=== PATIENT | male | born 1940 | race Caucasian/White ===

== ENCOUNTER 2017-04-06 13:14 | Outpatient (CLI) | payer MEDICARE, OTHER ==
[2017-04-06 19:49] LABS: ALBUMIN/GLOBULIN RATIO 1.2 (1.0-2.2); BILIRUBIN,TOTAL 0.4 mg/dL (0.2-1.0); CALCIUM 8.8 mg/dL (8.5-10.3); POTASSIUM 4.2 mmol/L (3.5-5.0); TOTAL PROTEIN 6.5 g/dL (6.7-8.2)
[2017-04-06 19:54] LABS: BASOPHILS # (AUTO) 0.1 10^3/uL (0.0-0.1); BASOPHILS % (AUTO) 1.2 %; EOSINOPHILS # (AUTO) 0.5 10^3/uL (0.0-0.7); EOSINOPHILS % (AUTO) 7.7 %; HCT - HEMATOCRIT 41.9 % (42.0-52.0); HGB - HEMOGLOBIN 13.5 g/dL (14.0-18.0); LYMPHOCYTES # (AUTO) 1.3 10^3/uL (1.5-3.5); LYMPHOCYTES % (AUTO) 21.7 %; MEAN CORPUSCULAR HEMOGLOBIN 27.9 pg (27.0-31.0); MEAN CORPUSCULAR HGB CONC 32.3 g/dL (32.0-36.0); MEAN CORPUSCULAR VOLUME 86.4 fL (80.0-94.0); MEAN PLATELET VOLUME 8.3 fL (7.4-11.4); MONOCYTES # (AUTO) 0.5 10^3/uL (0.0-1.0); NEUTROPHILS # (AUTO) 3.6 10^3/uL (1.5-6.6); NEUTROPHILS % (AUTO) 61.4 %; NUCLEATED RED BLOOD CELLS AUTO 0.2 /100WBC; RED BLOOD COUNT 4.86 10^6/uL (4.70-6.10); RED CELL DISTRIBUTION WIDTH 14.3 % (12.0-15.0); UNCORRECTED WHITE BLOOD COUNT 5.9 x10^3/uL; WHITE BLOOD COUNT 5.9 x10^3/uL (4.8-10.8)
[2017-04-06 21:11] LABS: HEMOGLOBIN A1C 0.98 g/dL
== END 2017-04-06 13:15 | disposition home or self-care (01) ==
LOC: LAB.WCP 13:14
PROVIDERS: ATTEND Family Medicine
DX: E11.9 Type 2 diabetes mellitus without complications (principal); I63.9 Cerebral infarction, unspecified; I48.0 Paroxysmal atrial fibrillation
CPT/HCPCS: 36415; 80053; 82043; 83036; 85025

== ENCOUNTER 2017-07-08 10:46 | Outpatient (CLI) | payer MEDICARE, OTHER ==
[2017-07-08 19:32] LABS: ALBUMIN/GLOBULIN RATIO 1.3 (1.0-2.2); BILIRUBIN,TOTAL 0.6 mg/dL (0.2-1.0); CALCIUM 8.7 mg/dL (8.5-10.3); CREATININE 0.8 mg/dL (0.6-1.2); POTASSIUM 4.5 mmol/L (3.5-5.0); TOTAL PROTEIN 6.7 g/dL (6.7-8.2)
[2017-07-08 19:35] LABS: HEMOGLOBIN A1C 0.91 g/dL
== END 2017-07-08 10:47 | disposition home or self-care (01) ==
LOC: LAB.WCP 10:46
PROVIDERS: ATTEND Family Medicine
DX: H53.461 Homonymous bilateral field defects, right side (principal); E11.9 Type 2 diabetes mellitus without complications; I48.0 Paroxysmal atrial fibrillation
CPT/HCPCS: 36415; 80053; 83036

== ENCOUNTER 2017-07-29 12:52 | Outpatient (CLI) | payer MEDICARE, OTHER ==
[2017-07-29] MEDS ORDERED: GADOBUTROL 7.5 MMOL/7.5 ML VIAL IVP ONE (14:26)
--- NOTE | 2017-07-29 15:05 | MRI Report ---
EXAM: MRI BRAIN WITHOUT AND WITH CONTRAST EXAM DATE: 07/29/2017 02:38 PM. 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 COMPARISON: MRI on 08/05/2016. TECHNIQUE: Multiplanar, multisequence T1-weighted and fluid-sensitive MR sequences of the brain were performed. Sequences optimized for routine evaluation. Other: None. Without and with IV Contrast: 7.5 cc Gadavist. FINDINGS: Parenchyma: No evidence of acute infarct on diffusion weighted sequence. Wedge-shaped region of encep halomalacia is present in the left cerebellar vermis that measures approximately 2.4 x 1.7 cm, new co mpared to the 08/05/2016 exam and consistent with remote infarct in the left SCA territory. Geographic regions of encephalomalacia are present in the inferior right occipital lobe and medial le ft occipital lobe, unchanged from the 08/05/2016 exam and consistent with remote infarcts in the VP SITE territories bilaterally. Small defects are present in the inferior right cerebellar hemisphere, also unchanged from the prior exam and consistent with remote lacunar infarcts in the PICA territory. No e vidence of prior hemorrhage on susceptibility weighted sequence. No abnormal enhancement. Pituitary: Unremarkable. Ventricles and Extra-axial Spaces: Ventricles are nearly symmetric and unchanged in size compared to the 2016 exam. Extra-axial spaces are unremarkable. No abnormal enhancement. Orbits: Unremarkable. Sinuses: The paranasal sinuses are clear. Small bilateral mastoid effusions are present. Major Vascular Flow Voids: Intact. Dural Venous Sinuses and Major Central Veins: Patent on post-contrast images. IMPRESSION: 1. No acute intracranial abnormality. Specifically, no evidence of acute infarct, hemorrhage, or mass lesion. 2. Wedge-shaped region of encephalomalacia is present in the left cerebellar vermis, new compared to the 08/05/2016 exam and consistent with remote infarct in the left SCA territory. 3. Geographic regions of encephalomalacia in the inferior right occipital lobe and medial left occipi michelle lobe are unchanged from the 2016 exam and consistent with remote infarcts in the VP SITE territories. Small remote lacunar infarcts are also present in the inferior right cerebellar hemisphere, correspo nding to the right PICA territory. [facility] Referring Provider Line: [phone] SITE ID: [id number]
== END 2017-07-29 12:53 | disposition home or self-care (01) ==
LOC: DI 12:52
PROVIDERS: ATTEND Family Medicine
DX: H53.461 Homonymous bilateral field defects, right side (principal); I63.9 Cerebral infarction, unspecified; R51 Headache; I48.0 Paroxysmal atrial fibrillation
CPT/HCPCS: 70553

== ENCOUNTER 2017-11-24 08:00 | Outpatient (CLI) | payer MEDICARE, OTHER ==
[2017-11-24 19:00] LABS: BASOPHILS # (AUTO) 0.1 10^3/uL (0.0-0.1); BASOPHILS % (AUTO) 1.2 %; EOSINOPHILS # (AUTO) 0.3 10^3/uL (0.0-0.7); EOSINOPHILS % (AUTO) 5.4 %; HGB - HEMOGLOBIN 15.3 g/dL (14.0-18.0); LYMPHOCYTES # (AUTO) 1.3 10^3/uL (1.5-3.5); LYMPHOCYTES % (AUTO) 24.7 %; MEAN CORPUSCULAR HEMOGLOBIN 27.9 pg (27.0-31.0); MEAN CORPUSCULAR HGB CONC 32.2 g/dL (32.0-36.0); MEAN CORPUSCULAR VOLUME 86.6 fL (80.0-94.0); MEAN PLATELET VOLUME 7.9 fL (7.4-11.4); MONOCYTES # (AUTO) 0.4 10^3/uL (0.0-1.0); MONOCYTES % (AUTO) 8.4 %; NEUTROPHILS # (AUTO) 3.1 10^3/uL (1.5-6.6); NEUTROPHILS % (AUTO) 60.3 %; PLT - PLATELET COUNT 255 10^3/uL (130-450); RED BLOOD COUNT 5.47 10^6/uL (4.70-6.10); RED CELL DISTRIBUTION WIDTH 14.3 % (12.0-15.0); WHITE BLOOD COUNT 5.2 x10^3/uL (4.8-10.8)
[2017-11-24 19:27] LABS: ALBUMIN 3.7 g/dL (3.2-5.5); ALBUMIN/GLOBULIN RATIO 1.2 (1.0-2.2); ALKALINE PHOSPHATASE 55 IU/L (42-121); ALT ALANINE AMINOTRANSFERASE 46 IU/L (10-60); AST ASPARTATE AMINOTRANSFERASE 34 IU/L (10-42); BILIRUBIN,TOTAL 0.5 mg/dL (0.2-1.0); BUN - BLOOD UREA NITROGEN 15 mg/dL (6-20); CALCIUM 8.7 mg/dL (8.5-10.3); CARBON DIOXIDE - CO2 27 mmol/L (21-32); CHLORIDE 104 mmol/L (101-111); CHOL/HDL RATIO 5.6 (<5.0); CHOLESTEROL 152 mg/dL; GFR - MDRD 72 (>89); GLUCOSE 131 mg/dL (70-100); HDL CHOLESTEROL 27 mg/dL; LDL CHOLESTEROL,CALCULATED 89 mg/dL; LDL/HDL RATIO 3.3 (<3.6); SODIUM 137 mmol/L (135-145); TOTAL PROTEIN 6.9 g/dL (6.7-8.2); VLDL CHOLESTEROL 36 mg/dL
== END 2017-11-24 08:01 | disposition home or self-care (01) ==
LOC: LAB.WCP 08:00
PROVIDERS: ATTEND Family Medicine
DX: I63.8 Other cerebral infarction (principal); I48.0 Paroxysmal atrial fibrillation
CPT/HCPCS: 36415; 80053; 80061; 84443; 85025

== ENCOUNTER → 2018-07-27 | Outpatient (CLI) | payer MEDICARE, OTHER | LOC: LAB.R 08:00 | PROVIDERS: ATTEND Family Medicine | DX: M54.5 Low back pain (principal); R31.9 Hematuria, unspecified | CPT/HCPCS: 87086 ==

== ENCOUNTER 2018-07-29 16:00 | Outpatient (CLI) | payer MEDICARE, OTHER ==
[2018-07-29 19:28] LABS: BILIRUBIN,URINE NEGATIVE (NEGATIVE); GLUCOSE, URINE (UA) NEGATIVE (NEGATIVE); KETONES,URINE (UA) NEGATIVE (NEGATIVE); LEUKOCYTE ESTERASE, URINE NEGATIVE (NEGATIVE); NITRITE,URINE NEGATIVE (NEGATIVE); OCCULT BLOOD,URINE LARGE (NEGATIVE); PROTEIN,URINE 100 mg/dL (NEGATIVE); UROBILINOGEN,URINE 0.2 (NORMAL) E.U./dL (NORMAL)
[2018-07-29 19:48] LABS: BACTERIA,URINE None Seen /HPF (None Seen); CLARITY,URINE CLOUDY (CLEAR); RBC,URINE TNTC /HPF (0-5); SQUAMOUS EPITHELIAL CELL,UR NONE SEEN (<= Few)
== END 2018-07-29 16:01 | disposition home or self-care (01) ==
LOC: LAB.R 16:00
PROVIDERS: ATTEND Family Medicine
DX: R31.9 Hematuria, unspecified (principal)
CPT/HCPCS: 81001; 87086

== ENCOUNTER 2018-08-06 08:00 | Outpatient (CLI) | payer MEDICARE, OTHER ==
[2018-08-06 18:49] LABS: URIC ACID 5.6 mg/dL (2.6-7.2)
== END 2018-08-06 08:01 | disposition home or self-care (01) ==
LOC: LAB.WCP 08:00
PROVIDERS: ATTEND Family Medicine
DX: R31.9 Hematuria, unspecified (principal)
CPT/HCPCS: 36415; 80048; 82365; 84550

== ENCOUNTER 2018-08-12 17:48 | Outpatient (CLI) | payer MEDICARE, OTHER ==
--- NOTE | 2018-08-13 09:43 | Ultrasound Report ---
Reason: HEMATURIA,UNSPECIFIED TYPE Procedure Date: 08/12/2018 Accession Number: [id number] / [id number] Procedure: US - Retroperitoneal CPT Code: FULL RESULT: EXAM: RENAL ULTRASOUND EXAM DATE: 08/12/2018 07:15 PM. CLINICAL HISTORY: Hematuria, unspecified type. COMPARISON: None. TECHNIQUE: Real-time scanning was performed with static images obtained. FINDINGS: Right Kidney: 11.0 x 4.2 x 5.1 cm. 0.7 cm mid right renal simple cyst. No mass, stones or hydronephrosis. Small hypoechoic region adjacent to the inferior pole of the right kidney. Left Kidney: 10.9 x 6.1 x 4.7 cm. Cystic structures are noted in the left renal sinus. The largest measures 2.5 x 1.6 cm. No mass, stones or hydronephrosis. Several small hypoechoic lesion adjacent to the inferior pole of the left kidney. Bladder: Bilateral jets seen. The prevoid bladder volume was 121.8 cc. The postvoid bladder volume was 29.1 cc. Bladder is trabeculated. Other: Prostate gland appears prominent. IMPRESSION: 1. A 0.7 cm simple mid right renal cyst. Probable left parapelvic cyst. 2. No mass, stone or hydronephrosis. 3. No focal bladder abnormality. [facility]
== END 2018-08-12 17:49 | disposition home or self-care (01) ==
LOC: DI 17:48
PROVIDERS: ATTEND Urology
DX: R31.9 Hematuria, unspecified (principal); N28.1 Cyst of kidney, acquired
CPT/HCPCS: 76770

== ENCOUNTER 2019-01-19 08:00 | Outpatient (CLI) | payer MEDICARE, OTHER | END 2019-01-19 23:59 | disposition home or self-care (01) | LOC: LAB.WCP 08:00 | PROVIDERS: ATTEND Family Medicine | DX: I48.0 Paroxysmal atrial fibrillation (principal); Z79.01 Long term (current) use of anticoagulants ==

== ENCOUNTER 2019-02-16 08:00 | Outpatient (CLI) | payer MEDICARE, OTHER | END 2019-02-16 23:59 | disposition home or self-care (01) | LOC: LAB.WCP 08:00 | PROVIDERS: ATTEND Family Medicine | DX: I63.9 Cerebral infarction, unspecified (principal); Z79.01 Long term (current) use of anticoagulants | CPT/HCPCS: 81025 ==

== ENCOUNTER 2019-02-17 08:00 | Outpatient (CLI) | payer MEDICARE, OTHER ==
[2019-02-17 13:11] LABS: BASOPHILS # (AUTO) 0.1 10^3/uL (0.0-0.1); BASOPHILS % (AUTO) 1.1 %; EOSINOPHILS # (AUTO) 0.3 10^3/uL (0.0-0.7); EOSINOPHILS % (AUTO) 4.1 %; HGB - HEMOGLOBIN 14.6 g/dL (14.0-18.0); LYMPHOCYTES # (AUTO) 1.1 10^3/uL (1.5-3.5); LYMPHOCYTES % (AUTO) 17.7 %; MEAN CORPUSCULAR HEMOGLOBIN 28.2 pg (27.0-31.0); MEAN CORPUSCULAR HGB CONC 33.3 g/dL (32.0-36.0); MEAN CORPUSCULAR VOLUME 84.6 fL (80.0-94.0); MEAN PLATELET VOLUME 7.9 fL (7.4-11.4); MONOCYTES # (AUTO) 0.5 10^3/uL (0.0-1.0); MONOCYTES % (AUTO) 8.2 %; NEUTROPHILS # (AUTO) 4.4 10^3/uL (1.5-6.6); NEUTROPHILS % (AUTO) 68.9 %; PLT - PLATELET COUNT 264 10^3/uL (130-450); RED BLOOD COUNT 5.17 10^6/uL (4.70-6.10); RED CELL DISTRIBUTION WIDTH 14.2 % (12.0-15.0); WHITE BLOOD COUNT 6.3 x10^3/uL (4.8-10.8)
[2019-02-17 13:31] LABS: ALBUMIN 3.6 g/dL (3.2-5.5); ALBUMIN/GLOBULIN RATIO 1.2 (1.0-2.2); ALKALINE PHOSPHATASE 63 IU/L (42-121); ALT ALANINE AMINOTRANSFERASE 36 IU/L (10-60); AST ASPARTATE AMINOTRANSFERASE 23 IU/L (10-42); BILIRUBIN,TOTAL 0.7 mg/dL (0.2-1.0); BUN - BLOOD UREA NITROGEN 18 mg/dL (6-20); CALCIUM 9.1 mg/dL (8.5-10.3); CARBON DIOXIDE - CO2 26 mmol/L (21-32); CHLORIDE 102 mmol/L (101-111); CHOL/HDL RATIO 6.9 (<5.0); CHOLESTEROL 214 mg/dL; CREATININE 0.9 mg/dL (0.6-1.2); GFR - MDRD 81 (>89); GLUCOSE 203 mg/dL (70-100); HDL CHOLESTEROL 31 mg/dL; LDL CHOLESTEROL,CALCULATED 136 mg/dL; LDL/HDL RATIO 4.4 (<3.6); SODIUM 136 mmol/L (135-145); TOTAL PROTEIN 6.7 g/dL (6.7-8.2); VLDL CHOLESTEROL 47 mg/dL
[2019-02-17 13:46] LABS: HB2 TOTAL 15.9 g/dL; HEMOGLOBIN A1C 1.37 g/dL
== END 2019-02-17 23:59 | disposition home or self-care (01) ==
LOC: LAB.WCP 08:00
PROVIDERS: ATTEND Family Medicine
DX: E11.9 Type 2 diabetes mellitus without complications (principal); E78.5 Hyperlipidemia, unspecified
CPT/HCPCS: 36415; 80053; 80061; 82043; 83036; 83721; 84443; 85025

== ENCOUNTER 2019-02-21 12:31 | Outpatient (CLI) | payer MEDICARE, OTHER ==
--- NOTE | 2019-02-21 15:02 | XRAY Report ---
Reason: COUGH Procedure Date: 02/21/2019 Accession Number: [id number] / [id number] Procedure: XR - Chest 2 View X-Ray CPT Code: 84944 FULL RESULT: EXAM: CHEST RADIOGRAPHY EXAM DATE: 02/21/2019 01:01 PM. CLINICAL HISTORY: Cough. History of asbestos exposure. COMPARISON: None. TECHNIQUE: 2 views. FINDINGS: Lungs/Pleura: Calcifications are seen projecting over both lung greene, possibly pleural in nature. No lobar consolidation is detected. No definite pulmonary masses seen. Mediastinum: Heart and mediastinal contours are unremarkable. Other: None. IMPRESSION: Pleural calcifications. Recommendation: Chest CT. [facility]
== END 2019-02-21 12:32 | disposition home or self-care (01) ==
LOC: DI 12:31
PROVIDERS: ATTEND Family Medicine
DX: R05 Cough (principal); J94.8 Other specified pleural conditions
CPT/HCPCS: 71046

== ENCOUNTER 2019-03-16 08:00 | Outpatient (CLI) | payer MEDICARE, OTHER | END 2019-03-16 23:59 | disposition home or self-care (01) | LOC: LAB.WCP 08:00 | PROVIDERS: ATTEND Family Medicine | DX: I48.0 Paroxysmal atrial fibrillation (principal); Z79.01 Long term (current) use of anticoagulants ==

== ENCOUNTER 2019-03-23 08:00 | Outpatient (CLI) | payer MEDICARE, OTHER | END 2019-03-23 23:59 | disposition home or self-care (01) | LOC: LAB.WCP 08:00 | PROVIDERS: ATTEND Family Medicine | DX: I48.0 Paroxysmal atrial fibrillation (principal); Z79.01 Long term (current) use of anticoagulants ==

== ENCOUNTER 2019-03-31 08:00 | Outpatient (CLI) | payer MEDICARE, OTHER | END 2019-03-31 08:01 | disposition home or self-care (01) | LOC: LAB.WCP 08:00 | PROVIDERS: ATTEND Family Medicine | DX: Z51.81 Encounter for therapeutic drug level monitoring (principal); I48.0 Paroxysmal atrial fibrillation; Z79.01 Long term (current) use of anticoagulants ==

== ENCOUNTER 2019-04-07 14:35 | Outpatient (CLI) | payer MEDICARE, OTHER ==
[2019-04-07 18:54] LABS: BASOPHILS # (AUTO) 0.1 10^3/uL (0.0-0.1); BASOPHILS % (AUTO) 1.1 %; EOSINOPHILS # (AUTO) 0.1 10^3/uL (0.0-0.7); LYMPHOCYTES % (AUTO) 9.4 %; MEAN CORPUSCULAR HGB CONC 32.6 g/dL (32.0-36.0); MEAN CORPUSCULAR VOLUME 85.8 fL (80.0-94.0); MEAN PLATELET VOLUME 8.1 fL (7.4-11.4); MONOCYTES # (AUTO) 0.8 10^3/uL (0.0-1.0); MONOCYTES % (AUTO) 6.9 %; NEUTROPHILS % (AUTO) 81.6 %; PLT - PLATELET COUNT 287 10^3/uL (130-450); RED BLOOD COUNT 5.34 10^6/uL (4.70-6.10)
[2019-04-07 19:42] LABS: ALBUMIN 3.3 g/dL (3.2-5.5); ALBUMIN/GLOBULIN RATIO 0.8 (1.0-2.2); BILIRUBIN,TOTAL 0.7 mg/dL (0.2-1.0); CALCIUM 8.7 mg/dL (8.5-10.3); CREATININE 1.1 mg/dL (0.6-1.2); TOTAL PROTEIN 7.3 g/dL (6.7-8.2)
== END 2019-04-07 14:36 | disposition home or self-care (01) ==
LOC: LAB.WCP 14:35
PROVIDERS: ATTEND Family Medicine
DX: J18.9 Pneumonia, unspecified organism (principal)
CPT/HCPCS: 36415; 80053; 85025; 87040

== ENCOUNTER 2019-04-09 10:37 | Outpatient (CLI) | payer MEDICARE, OTHER ==
--- NOTE | 2019-04-11 23:35 | CT Report ---
Reason: STANDARD CHEST X-RAY ABNORMAL Procedure Date: 04/09/2019 Accession Number: [id number] / [id number] Procedure: CT - CHEST WO CPT Code: FULL RESULT: EXAM: CT CHEST EXAM DATE: 04/09/2019 10:48 AM. CLINICAL HISTORY: Dyspnea. COMPARISONS: CHEST 2 VIEW 02/21/2019 12:54 PM. TECHNIQUE: Routine helical CT imaging was performed through the chest. IV contrast: None. Reconstructions: Coronal and sagittal. In accordance with CT protocol optimization, one or more of the following dose reduction techniques were utilized for this exam: automated exposure control, adjustment of mA and/or KV based on patient size, or use of iterative reconstructive technique. FINDINGS: Lungs/Pleura: There are extensive bilateral calcified pleural plaques. There is scattered areas of peribronchovascular and juxtapleural sub-solid nodularity, most pronounced within the left lower lobe (for example image 39 series 4). There is no evidence of pleural effusion. No significant subpleural reticulation. No traction bronchiectasis or honeycombing. No evidence of pneumothorax. Mediastinum: Heart size is within normal limits. There are coronary artery and aortic valve calcifications. Aortic contour is within normal limits. Bones: Unremarkable. Visualized Abdomen: There is a subcentimeter right adrenal adenoma. The visualized portions of the upper abdominal organs demonstrate no acute abnormalities. Other: None. IMPRESSION: 1. 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 2. There is scattered areas of peribronchovascular and juxtapleural sub-solid nodularity, most pronounced within the left lower lobe. Primary differential considerations include organizing or infectious pneumonia. This would be an atypical appearance for interstitial lung disease. 3. Heart size is within normal limits. There are coronary artery and aortic valve calcifications. [facility]
== END 2019-04-09 10:38 | disposition home or self-care (01) ==
LOC: DI 10:37
PROVIDERS: ATTEND Family Medicine
DX: R91.8 Other nonspecific abnormal finding of lung field (principal); J94.8 Other specified pleural conditions
CPT/HCPCS: 71250

== ENCOUNTER 2019-04-19 08:00 | Outpatient (CLI) | payer MEDICARE, OTHER | END 2019-04-19 23:59 | disposition home or self-care (01) | LOC: LAB.WCP 08:00 | PROVIDERS: ATTEND Family Medicine | DX: I48.0 Paroxysmal atrial fibrillation (principal); Z79.01 Long term (current) use of anticoagulants ==

== ENCOUNTER 2019-04-29 13:10 | Outpatient (CLI) | payer MEDICARE, OTHER ==
--- NOTE | 2019-04-29 14:08 | XRAY Report ---
Reason: COUGH Procedure Date: 04/29/2019 Accession Number: [id number] / [id number] Procedure: XR - Chest 2 View X-Ray CPT Code: 69034 FULL RESULT: EXAM: CHEST RADIOGRAPHY EXAM DATE: 04/29/2019 01:30 PM. CLINICAL HISTORY: COUGH. COMPARISON: CHEST 2 VIEW 02/21/2019 12:54 PM. TECHNIQUE: 2 views. FINDINGS: Lungs/Pleura: No significant change in bilateral fibrothorax and pleural calcifications. No obvious pleural based soft tissue mass. No pleural effusions. Mediastinum: Heart and mediastinal contours are unremarkable. Other: None. IMPRESSION: 1. 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 No suspicious mass or pleural effusion. 2. Otherwise negative exam. No definite acute process. [facility]
== END 2019-04-29 13:11 | disposition home or self-care (01) ==
LOC: DI 13:10
PROVIDERS: ATTEND Family Medicine
DX: J94.1 Fibrothorax (principal)
CPT/HCPCS: 71046

== ENCOUNTER 2019-05-03 08:00 | Outpatient (CLI) | payer MEDICARE, OTHER | END 2019-05-03 23:59 | disposition home or self-care (01) | LOC: LAB.WCP 08:00 | PROVIDERS: ATTEND Family Medicine | DX: I63.9 Cerebral infarction, unspecified (principal); I48.0 Paroxysmal atrial fibrillation; Z79.01 Long term (current) use of anticoagulants ==

== ENCOUNTER 2019-05-31 08:00 | Outpatient (CLI) | payer MEDICARE, OTHER | END 2019-05-31 08:01 | disposition home or self-care (01) | LOC: LAB.WCP 08:00 | PROVIDERS: ATTEND Family Medicine | DX: I63.9 Cerebral infarction, unspecified (principal); I48.0 Paroxysmal atrial fibrillation; Z79.01 Long term (current) use of anticoagulants ==

== ENCOUNTER 2019-07-01 08:00 | Outpatient (CLI) | payer MEDICARE, OTHER | END 2019-07-01 23:59 | disposition home or self-care (01) | LOC: LAB.WCP 08:00 | PROVIDERS: ATTEND Family Medicine | DX: I63.9 Cerebral infarction, unspecified (principal); I48.0 Paroxysmal atrial fibrillation; Z79.01 Long term (current) use of anticoagulants ==

== ENCOUNTER 2019-07-15 08:00 | Outpatient (CLI) | payer MEDICARE, OTHER | END 2019-07-15 23:59 | disposition home or self-care (01) | LOC: LAB.WCP 08:00 | PROVIDERS: ATTEND Family Medicine | DX: I48.0 Paroxysmal atrial fibrillation (principal); Z79.01 Long term (current) use of anticoagulants ==

== ENCOUNTER 2019-07-20 08:00 | Outpatient (CLI) | payer MEDICARE, OTHER | END 2019-07-20 23:59 | disposition home or self-care (01) | LOC: LAB.R 08:00 | PROVIDERS: ATTEND Family Medicine | DX: N39.0 Urinary tract infection, site not specified (principal) | CPT/HCPCS: 87077; 87086; 87181 ==

== ENCOUNTER 2019-07-22 08:00 | Outpatient (CLI) | payer MEDICARE, OTHER | END 2019-07-22 23:59 | disposition home or self-care (01) | LOC: LAB.WCP 08:00 | PROVIDERS: ATTEND Family Medicine | DX: I48.0 Paroxysmal atrial fibrillation (principal); Z79.01 Long term (current) use of anticoagulants ==

== ENCOUNTER 2019-07-28 08:00 | Outpatient (CLI) | payer MEDICARE, OTHER | END 2019-07-28 23:59 | disposition home or self-care (01) | LOC: LAB.WCP 08:00 | PROVIDERS: ATTEND Family Medicine | DX: I63.9 Cerebral infarction, unspecified (principal); I48.0 Paroxysmal atrial fibrillation; Z79.01 Long term (current) use of anticoagulants ==

== ENCOUNTER 2019-08-04 10:01 | Outpatient (CLI) | payer MEDICARE, OTHER ==
[2019-08-04 12:16] LABS: BASOPHILS # (AUTO) 0.1 10^3/uL (0.0-0.1); BASOPHILS % (AUTO) 0.6 %; EOSINOPHILS # (AUTO) 0.4 10^3/uL (0.0-0.7); EOSINOPHILS % (AUTO) 4.8 %; HGB - HEMOGLOBIN 13.7 g/dL (14.0-18.0); LYMPHOCYTES # (AUTO) 1.5 10^3/uL (1.5-3.5); LYMPHOCYTES % (AUTO) 16.3 %; MEAN CORPUSCULAR HEMOGLOBIN 26.6 pg (27.0-31.0); MEAN CORPUSCULAR HGB CONC 30.6 g/dL (32.0-36.0); MEAN CORPUSCULAR VOLUME 86.8 fL (80.0-94.0); MEAN PLATELET VOLUME 9.8 fL (7.4-11.4); MONOCYTES # (AUTO) 0.7 10^3/uL (0.0-1.0); MONOCYTES % (AUTO) 7.9 %; NEUTROPHILS # (AUTO) 6.3 10^3/uL (1.5-6.6); NEUTROPHILS % (AUTO) 70.1 %; PLT - PLATELET COUNT 295 10^3/uL (130-450); RED BLOOD COUNT 5.15 10^6/uL (4.70-6.10); RED CELL DISTRIBUTION WIDTH 13.7 % (12.0-15.0)
[2019-08-04 12:46] LABS: BILIRUBIN,URINE NEGATIVE (NEGATIVE); GLUCOSE, URINE (UA) NEGATIVE (NEGATIVE); KETONES,URINE (UA) NEGATIVE (NEGATIVE); LEUKOCYTE ESTERASE, URINE MODERATE (NEGATIVE); NITRITE,URINE POSITIVE (NEGATIVE); OCCULT BLOOD,URINE LARGE (NEGATIVE); PH,URINE 5.5 PH (5.0-7.5); PROTEIN,URINE 30 mg/dL (NEGATIVE); UROBILINOGEN,URINE 0.2 (NORMAL) E.U./dL (NORMAL)
[2019-08-04 12:52] LABS: CLARITY,URINE CLOUDY (CLEAR)
[2019-08-04 12:57] LABS: BACTERIA,URINE Moderate /HPF (None Seen); SQUAMOUS EPITHELIAL CELL,UR RARE Squamous (<= Few)
[2019-08-04 13:18] LABS: ALBUMIN 3.4 g/dL (3.2-5.5); BILIRUBIN,TOTAL 0.5 mg/dL (0.2-1.0); CALCIUM 8.8 mg/dL (8.5-10.3); CREATININE 0.9 mg/dL (0.6-1.2); TOTAL PROTEIN 6.9 g/dL (6.7-8.2)
== END 2019-08-04 10:10 | disposition home or self-care (01) ==
LOC: LAB.WCP 10:01
PROVIDERS: ATTEND Family Medicine
DX: I95.9 Hypotension, unspecified (principal); N39.0 Urinary tract infection, site not specified
CPT/HCPCS: 36415; 80053; 81001; 81003; 84443; 85025; 87077; 87086; 87181

== ENCOUNTER 2019-08-06 13:18 | Outpatient (CLI) | payer MEDICARE, OTHER ==
[2019-08-06] MEDS ORDERED: IOVERSOL 320 100 ML VIAL IVP ONE ×2 (13:31→13:38)
--- NOTE | 2019-08-08 08:54 | CT Report ---
Reason: HYPOTENSION, UTI, LT FLANK PAIN Procedure Date: 08/06/2019 Accession Number: [id number] / [id number] Procedure: CT - IVP CPT Code: FULL RESULT: EXAM: CT ABDOMEN AND PELVIS WITHOUT AND WITH CONTRAST (CT IVP) EXAM DATE: 08/06/2019 01:36 PM. CLINICAL HISTORY: Hypotension, UTI, left flank pain. COMPARISONS: None. TECHNIQUE: Routine helical imaging was performed through the kidneys, ureters and bladder in the precontrast, postcontrast and delayed phase. IV Contrast: 100 mL Optiray 320. Reconstructions: Coronal and sagittal. In accordance with CT protocol optimization, one or more of the following dose reduction techniques were utilized for this exam: automated exposure control, adjustment of mA and/or KV based on patient size, or use of iterative reconstructive technique. FINDINGS: Lung Bases: Bilateral partially calcified pleural plaques. No pleural fluid collections. Liver: Normal. No masses. Gallbladder/Bile Ducts: Unremarkable. Spleen: Normal. Pancreas: Normal. Adrenal Glands: Normal. Kidneys/Bladder: Right Kidney/Ureter: No renal or ureteral stones. No hydronephrosis or hydroureter. No masses. Left Kidney/Ureter: No renal or ureteral stones. No hydronephrosis or hydroureter. No masses. There are nonenhancing parapelvic cysts. Bladder: No stones. No wall thickening or mass. Peritoneal Cavity/Bowel: Normal. No free fluid, free air or adenopathy. No masses or acute inflammatory process. Pelvic Organs: Visualized pelvic organs are unremarkable. Vasculature: No aneurysms or other significant abnormality. Bones: No significant abnormality. Other: Borderline prominent prostate, measuring 3.9 x 5.7 cm.. IMPRESSION: . No urinary tract masses, stones or obstruction. Left renal parapelvic cysts. Borderline prominent prostate. Partially calcified pleural-based plaques at the visualized lung bases. [facility]
== END 2019-08-06 13:19 | disposition home or self-care (01) ==
LOC: DI 13:18
PROVIDERS: ATTEND Family Medicine
DX: N39.0 Urinary tract infection, site not specified (principal); R10.9 Unspecified abdominal pain; I95.9 Hypotension, unspecified; Q61.02 Congenital multiple renal cysts
CPT/HCPCS: 74178; Q9967

== ENCOUNTER 2019-08-08 08:00 | Outpatient (CLI) | payer MEDICARE, OTHER | END 2019-08-08 23:59 | disposition home or self-care (01) | LOC: LAB.WCP 08:00 | PROVIDERS: ATTEND Physician Assistant Medical | DX: I48.0 Paroxysmal atrial fibrillation (principal); Z79.01 Long term (current) use of anticoagulants ==

== ENCOUNTER 2019-08-10 08:00 | Outpatient (CLI) | payer MEDICARE, OTHER | END 2019-08-10 23:59 | disposition home or self-care (01) | LOC: LAB.WCP 08:00 | PROVIDERS: ATTEND Family Medicine | DX: I48.0 Paroxysmal atrial fibrillation (principal); I63.9 Cerebral infarction, unspecified; Z79.01 Long term (current) use of anticoagulants ==

== ENCOUNTER 2019-08-19 08:00 | Outpatient (CLI) | payer MEDICARE, OTHER | END 2019-08-19 23:59 | disposition home or self-care (01) | LOC: LAB.WCP 08:00 | PROVIDERS: ATTEND Family Medicine | DX: Z79.01 Long term (current) use of anticoagulants (principal); I63.9 Cerebral infarction, unspecified; I48.0 Paroxysmal atrial fibrillation ==

== ENCOUNTER 2019-08-22 08:00 | Outpatient (CLI) | payer MEDICARE, OTHER ==
[2019-08-22 18:37] LABS: BILIRUBIN,URINE NEGATIVE (NEGATIVE); CLARITY,URINE CLEAR (CLEAR); GLUCOSE, URINE (UA) 100 mg/dL (NEGATIVE); KETONES,URINE (UA) TRACE mg/dL (NEGATIVE); LEUKOCYTE ESTERASE, URINE NEGATIVE (NEGATIVE); NITRITE,URINE NEGATIVE (NEGATIVE); OCCULT BLOOD,URINE NEGATIVE (NEGATIVE); PH,URINE 5.5 PH (5.0-7.5); PROTEIN,URINE NEGATIVE (NEGATIVE); UROBILINOGEN,URINE 0.2 (NORMAL) E.U./dL (NORMAL)
[2019-08-22 18:48] LABS: ALBUMIN 4.2 g/dL (3.2-5.5); ALBUMIN/GLOBULIN RATIO 1.4 (1.0-2.2); BILIRUBIN,TOTAL 0.5 mg/dL (0.2-1.0); TOTAL PROTEIN 7.2 g/dL (6.7-8.2)
[2019-08-22 19:36] LABS: HB2 TOTAL 14.8 g/dL; HEMOGLOBIN A1C 0.79 g/dL
== END 2019-08-22 23:59 | disposition home or self-care (01) ==
LOC: LAB.WCP 08:00
PROVIDERS: ATTEND Family Medicine
DX: E11.9 Type 2 diabetes mellitus without complications (principal); E78.5 Hyperlipidemia, unspecified; N39.0 Urinary tract infection, site not specified
CPT/HCPCS: 36415; 80053; 81001; 81003; 83036; 87086

== ENCOUNTER 2019-09-12 08:00 | Outpatient (CLI) | payer MEDICARE, OTHER | END 2019-09-12 23:59 | disposition home or self-care (01) | LOC: LAB.WCP 08:00 | PROVIDERS: ATTEND Physician Assistant Medical | DX: Z79.01 Long term (current) use of anticoagulants (principal); I48.0 Paroxysmal atrial fibrillation ==

== ENCOUNTER 2019-09-19 08:00 | Outpatient (CLI) | payer MEDICARE, OTHER | END 2019-09-19 23:59 | disposition home or self-care (01) | LOC: LAB.WCP 08:00 | PROVIDERS: ATTEND Physician Assistant Medical | DX: Z79.01 Long term (current) use of anticoagulants (principal); I48.0 Paroxysmal atrial fibrillation ==

== ENCOUNTER 2019-09-22 08:00 | Outpatient (CLI) | payer MEDICARE, OTHER ==
[2019-09-22 19:17] LABS: BASOPHILS # (AUTO) 0.1 10^3/uL (0.0-0.1); BASOPHILS % (AUTO) 1.2 %; EOSINOPHILS # (AUTO) 0.4 10^3/uL (0.0-0.7); EOSINOPHILS % (AUTO) 5.5 %; HGB - HEMOGLOBIN 13.7 g/dL (14.0-18.0); LYMPHOCYTES # (AUTO) 1.7 10^3/uL (1.5-3.5); MEAN CORPUSCULAR HEMOGLOBIN 27.4 pg (27.0-31.0); MEAN CORPUSCULAR HGB CONC 31.2 g/dL (32.0-36.0); MEAN CORPUSCULAR VOLUME 87.8 fL (80.0-94.0); MEAN PLATELET VOLUME 9.8 fL (7.4-11.4); MONOCYTES # (AUTO) 0.6 10^3/uL (0.0-1.0); MONOCYTES % (AUTO) 7.9 %; NEUTROPHILS # (AUTO) 4.2 10^3/uL (1.5-6.6); NEUTROPHILS % (AUTO) 61.1 %; PLT - PLATELET COUNT 270 10^3/uL (130-450); RED CELL DISTRIBUTION WIDTH 13.5 % (12.0-15.0); WHITE BLOOD COUNT 6.9 x10^3/uL (4.8-10.8)
[2019-09-22 19:47] LABS: ALBUMIN 3.8 g/dL (3.2-5.5); ALBUMIN/GLOBULIN RATIO 1.2 (1.0-2.2); BILIRUBIN,TOTAL 0.5 mg/dL (0.2-1.0); CALCIUM 8.9 mg/dL (8.5-10.3); CREATININE 0.9 mg/dL (0.6-1.2)
== END 2019-09-22 23:59 | disposition home or self-care (01) ==
LOC: LAB.WCP 08:00
PROVIDERS: ATTEND Family Medicine
DX: J61 Pneumoconiosis due to asbestos and other mineral fibers (principal); R05 Cough; R53.83 Other fatigue; Z79.01 Long term (current) use of anticoagulants; I63.9 Cerebral infarction, unspecified; I48.0 Paroxysmal atrial fibrillation
CPT/HCPCS: 36415; 80053; 81002; 84443; 85025

== ENCOUNTER 2019-09-30 08:00 | Outpatient (CLI) | payer MEDICARE, OTHER | END 2019-09-30 23:59 | disposition home or self-care (01) | LOC: LAB.WCP 08:00 | PROVIDERS: ATTEND Family Medicine | DX: Z79.01 Long term (current) use of anticoagulants (principal); I63.9 Cerebral infarction, unspecified; I48.0 Paroxysmal atrial fibrillation ==

== ENCOUNTER 2019-10-17 08:00 | Outpatient (CLI) | payer MEDICARE, OTHER | END 2019-10-17 23:59 | disposition home or self-care (01) | LOC: LAB.WCP 08:00 | PROVIDERS: ATTEND Physician Assistant | DX: Z79.01 Long term (current) use of anticoagulants (principal); I48.0 Paroxysmal atrial fibrillation ==

== ENCOUNTER 2019-10-28 08:00 | Outpatient (CLI) | payer MEDICARE, OTHER | END 2019-10-28 23:59 | disposition home or self-care (01) | LOC: LAB.WCP 08:00 | PROVIDERS: ATTEND Family Medicine | DX: Z79.01 Long term (current) use of anticoagulants (principal); I48.0 Paroxysmal atrial fibrillation ==

== ENCOUNTER 2019-11-11 08:00 | Outpatient (CLI) | payer MEDICARE, OTHER | END 2019-11-11 23:59 | disposition home or self-care (01) | LOC: LAB.WCP 08:00 | PROVIDERS: ATTEND Family Medicine | DX: Z79.01 Long term (current) use of anticoagulants (principal); I63.9 Cerebral infarction, unspecified; I48.0 Paroxysmal atrial fibrillation ==

== ENCOUNTER 2019-11-25 08:00 | Outpatient (CLI) | payer MEDICARE, OTHER | END 2019-11-25 23:59 | disposition home or self-care (01) | LOC: LAB.WCP 08:00 | PROVIDERS: ATTEND Family Medicine | DX: Z79.01 Long term (current) use of anticoagulants (principal); I63.9 Cerebral infarction, unspecified; I48.0 Paroxysmal atrial fibrillation ==

== ENCOUNTER 2019-12-23 08:00 | Outpatient (CLI) | payer MEDICARE, OTHER | END 2019-12-23 23:59 | disposition home or self-care (01) | LOC: LAB.WCP 08:00 | PROVIDERS: ATTEND Family Medicine | DX: I48.0 Paroxysmal atrial fibrillation (principal); I63.9 Cerebral infarction, unspecified; Z79.01 Long term (current) use of anticoagulants ==

== ENCOUNTER 2020-01-20 08:00 | Outpatient (CLI) | payer MEDICARE, OTHER | END 2020-01-20 23:59 | disposition home or self-care (01) | LOC: LAB.WCP 08:00 | PROVIDERS: ATTEND Family Medicine | DX: I63.9 Cerebral infarction, unspecified (principal); I48.0 Paroxysmal atrial fibrillation; Z79.01 Long term (current) use of anticoagulants ==

== ENCOUNTER 2020-01-27 08:00 | Outpatient (CLI) | payer MEDICARE, OTHER | END 2020-01-27 23:59 | disposition home or self-care (01) | LOC: LAB.WCP 08:00 | PROVIDERS: ATTEND Family Medicine | DX: I63.9 Cerebral infarction, unspecified (principal); I48.0 Paroxysmal atrial fibrillation; Z79.01 Long term (current) use of anticoagulants ==

== ENCOUNTER 2020-02-01 14:57 | Outpatient (CLI) | payer MEDICARE, OTHER ==
[2020-02-01 15:57] LABS: CREATININE 1.1 mg/dL (0.6-1.2)
[2020-02-01] MEDS ORDERED: IOVERSOL 320 100 ML VIAL IVP ONE ×2 (16:08→16:22)
--- NOTE | 2020-02-02 04:40 | CT Report ---
Reason: CHRONIC COUGH Procedure Date: 02/01/2020 Accession Number: [id number] / [id number] Procedure: CT - CHEST W CPT Code: Final Report FULL RESULT: EXAM: CT CHEST EXAM DATE: 02/01/2020 04:19 PM CLINICAL HISTORY: Chronic cough. COMPARISONS: CHEST W/O 04/09/2019 10:44 AM. TECHNIQUE: Routine helical CT imaging was performed through the chest. IV contrast: 80 mL Optiray 320. Reconstructions: Coronal and sagittal. In accordance with CT protocol optimization, one or more of the following dose reduction techniques were utilized for this exam: automated exposure control, adjustment of mA and/or KV based on patient size, or use of iterative reconstructive technique. FINDINGS: Lungs and Pleura: No significant pulmonary consolidation. Multifocal pleural calcifications related to prior asbestos exposure. Central Airways: Visualized central airways are without suspicious filling defects. Chest Wall: No significant abnormality. Thyroid: No significant abnormality. Mediastinum: No significant abnormality. Heart: Normal in size. No significant pericardial effusion. Aorta: Normal caliber. Upper Abdomen: Partially visualized portions of the left kidney suggest numerous peripelvic cysts. Hydronephrosis difficult to exclude. Small hiatal hernia. 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 There is a tiny stable right adrenal adenoma measuring 13 mm. Small hiatal hernia. Bones: No suspicious bony lesions evident. Multilevel degenerative changes within the spine. IMPRESSION: 1. No acute pulmonary abnormality. 2. Extensive pleural calcifications related to prior asbestos exposure. 3. Other incidental findings as above.
== END 2020-02-01 14:58 | disposition home or self-care (01) ==
LOC: DI 14:57
PROVIDERS: ATTEND Family Medicine
DX: J94.8 Other specified pleural conditions (principal); Z77.090 Contact with and (suspected) exposure to asbestos
CPT/HCPCS: 36415; 71260; 82565; Q9967

== ENCOUNTER 2020-02-03 08:00 | Outpatient (CLI) | payer MEDICARE, OTHER | END 2020-02-03 23:59 | disposition home or self-care (01) | LOC: LAB.WCP 08:00 | PROVIDERS: ATTEND Family Medicine | DX: I63.9 Cerebral infarction, unspecified (principal); Z79.01 Long term (current) use of anticoagulants; I48.0 Paroxysmal atrial fibrillation ==

== ENCOUNTER 2020-02-28 08:00 | Outpatient (CLI) | payer MEDICARE, OTHER | END 2020-02-28 23:59 | disposition home or self-care (01) | LOC: LAB.WCP 08:00 | PROVIDERS: ATTEND Family Medicine | DX: I63.9 Cerebral infarction, unspecified (principal); I48.0 Paroxysmal atrial fibrillation; Z79.01 Long term (current) use of anticoagulants ==

== ENCOUNTER 2020-03-12 08:00 | Outpatient (CLI) | payer MEDICARE, OTHER | END 2020-03-12 23:59 | disposition home or self-care (01) | LOC: LAB.WCP 08:00 | PROVIDERS: ATTEND Family Medicine | DX: I48.0 Paroxysmal atrial fibrillation (principal); Z79.01 Long term (current) use of anticoagulants; I63.9 Cerebral infarction, unspecified ==

== ENCOUNTER 2020-04-02 08:00 | Outpatient (CLI) | payer MEDICARE, OTHER | END 2020-04-02 23:59 | disposition home or self-care (01) | LOC: LAB.WCP 08:00 | PROVIDERS: ATTEND Family Medicine | DX: I63.9 Cerebral infarction, unspecified (principal); Z79.01 Long term (current) use of anticoagulants; I48.0 Paroxysmal atrial fibrillation ==

== ENCOUNTER 2020-04-30 08:00 | Outpatient (CLI) | payer MEDICARE, OTHER | END 2020-04-30 23:59 | disposition home or self-care (01) | LOC: LAB.WCP 08:00 | PROVIDERS: ATTEND Family Medicine | DX: I48.91 Unspecified atrial fibrillation (principal); Z79.01 Long term (current) use of anticoagulants; I63.9 Cerebral infarction, unspecified ==

== ENCOUNTER 2020-05-28 08:00 | Outpatient (CLI) | payer MEDICARE, OTHER | END 2020-05-28 23:59 | disposition home or self-care (01) | LOC: LAB.WCP 08:00 | PROVIDERS: ATTEND Family Medicine | DX: I48.0 Paroxysmal atrial fibrillation (principal); Z79.01 Long term (current) use of anticoagulants; I63.9 Cerebral infarction, unspecified ==

== ENCOUNTER 2020-07-17 08:00 | Outpatient (CLI) | payer MEDICARE, OTHER | END 2020-07-17 23:59 | disposition home or self-care (01) | LOC: LAB.WCP 08:00 | PROVIDERS: ATTEND Family Medicine | DX: I48.0 Paroxysmal atrial fibrillation (principal); I63.9 Cerebral infarction, unspecified ==

== ENCOUNTER 2020-07-30 08:00 | Outpatient (CLI) | payer MEDICARE, OTHER | END 2020-07-30 23:59 | disposition home or self-care (01) | LOC: LAB.WCP 08:00 | PROVIDERS: ATTEND Family Medicine | DX: Z79.01 Long term (current) use of anticoagulants (principal) ==

== ENCOUNTER 2020-08-29 08:00 | Outpatient (CLI) | payer MEDICARE, OTHER | END 2020-08-29 23:59 | disposition home or self-care (01) | LOC: LAB.WCP 08:00 | PROVIDERS: ATTEND Family Medicine | DX: Z79.01 Long term (current) use of anticoagulants (principal) ==

== ENCOUNTER 2020-10-22 | Outpatient (CLI) | payer MEDICARE, OTHER | END 2020-10-22 23:59 | disposition home or self-care (01) | DX: Z79.01 Long term (current) use of anticoagulants (principal) ==

== ENCOUNTER → 2020-10-29 | Outpatient (CLI) | payer MEDICARE, OTHER ==
[2020-10-29 12:36] LABS: BASOPHILS # (AUTO) 0.1 10^3/uL (0.0-0.1); BASOPHILS % (AUTO) 0.9 %; EOSINOPHILS # (AUTO) 0.4 10^3/uL (0.0-0.7); EOSINOPHILS % (AUTO) 5.1 %; HGB - HEMOGLOBIN 14.3 g/dL (14.0-18.0); LYMPHOCYTES # (AUTO) 1.5 10^3/uL (1.5-3.5); LYMPHOCYTES % (AUTO) 21.9 %; MEAN CORPUSCULAR HEMOGLOBIN 27.1 pg (27.0-31.0); MEAN CORPUSCULAR HGB CONC 31.7 g/dL (32.0-36.0); MEAN CORPUSCULAR VOLUME 85.4 fL (80.0-94.0); MEAN PLATELET VOLUME 9.6 fL (7.4-11.4); MONOCYTES # (AUTO) 0.6 10^3/uL (0.0-1.0); MONOCYTES % (AUTO) 8.4 %; NEUTROPHILS # (AUTO) 4.3 10^3/uL (1.5-6.6); NEUTROPHILS % (AUTO) 63.3 %; PLT - PLATELET COUNT 251 10^3/uL (130-450); RED BLOOD COUNT 5.28 10^6/uL (4.70-6.10); RED CELL DISTRIBUTION WIDTH 13.3 % (12.0-15.0); WHITE BLOOD COUNT 6.8 x10^3/uL (4.8-10.8)
[2020-10-29 13:21] LABS: CREATININE,URINE 157.8 mg/dL; MICROALBUM/CREATININE RATIO,UR 2.5 ug/mg (<30.0); MICROALBUMIN,URINE 0.4 mg/dL (0-300.0)
[2020-10-29 13:34] LABS: ALBUMIN 3.8 g/dL (3.2-5.5); ALBUMIN/GLOBULIN RATIO 1.2 (1.0-2.2); ALKALINE PHOSPHATASE 78 IU/L (42-121); ALT ALANINE AMINOTRANSFERASE 19 IU/L (10-60); AST ASPARTATE AMINOTRANSFERASE 15 IU/L (10-42); BILIRUBIN,TOTAL 0.5 mg/dL (0.2-1.0); BUN - BLOOD UREA NITROGEN 24 mg/dL (6-20); CALCIUM 9.1 mg/dL (8.5-10.3); CARBON DIOXIDE - CO2 27 mmol/L (21-32); CHLORIDE 104 mmol/L (101-111); CHOL/HDL RATIO 4.4 (<5.0); CHOLESTEROL 123 mg/dL; CREATININE 1.1 mg/dL (0.6-1.2); GLUCOSE 187 mg/dL (70-100); HDL CHOLESTEROL 28 mg/dL; LDL CHOLESTEROL,CALCULATED 74 mg/dL; LDL/HDL RATIO 2.6 (<3.6); SODIUM 140 mmol/L (135-145); TOTAL PROTEIN 6.9 g/dL (6.7-8.2); VLDL CHOLESTEROL 21 mg/dL
[2020-10-29 15:36] LABS: HEMOGLOBIN A1c% 7.7 % (4.27-6.07)
== END ==
LOC: LAB.WCP 08:00
PROVIDERS: ATTEND Family Medicine
DX: E11.9 Type 2 diabetes mellitus without complications (principal); I63.9 Cerebral infarction, unspecified; I48.0 Paroxysmal atrial fibrillation; E78.5 Hyperlipidemia, unspecified; Z79.01 Long term (current) use of anticoagulants
CPT/HCPCS: 36415; 80053; 80061; 82043; 82570; 83036; 83721; 84443; 85025

== ENCOUNTER 2020-12-12 08:00 | Outpatient (CLI) | payer MEDICARE, OTHER | END 2020-12-12 23:59 | disposition home or self-care (01) | LOC: LAB.WCP 08:00 | PROVIDERS: ATTEND Family Medicine | DX: Z79.01 Long term (current) use of anticoagulants (principal) ==

== ENCOUNTER 2020-12-19 08:00 | Outpatient (CLI) | payer MEDICARE, OTHER | END 2020-12-19 23:59 | disposition home or self-care (01) | LOC: LAB.WCP 08:00 | PROVIDERS: ATTEND Family Medicine | DX: Z79.01 Long term (current) use of anticoagulants (principal) ==

== ENCOUNTER 2021-01-17 08:21 | Outpatient (CLI) | payer OTHER, MEDICARE ==
--- NOTE | 2021-01-17 10:17 | DEXA Report ---
PROCEDURE: Dexa Spine and/or Hip INDICATIONS: OSTEOPOROSIS TECHNIQUE: Dual energy x-ray absorptiometry (DXA) was performed on a Beacon Reader System. Regions measur ed are the AP Spine, femoral neck, and if needed forearm. COMPARISON: None. FINDINGS: Lumbar Spine: Bone Mineral Density 1.255 g/cm/cm,T score 0.3, Left Hip: Bone Mineral Density 0.880 g/cm/cm,T score -1.5, Left Femoral Neck: Bone Mineral Density 0.804 g/cm/cm, T score -2.0, (T score greater or equal to -1.0: NORMAL) (T score from -1.1 to -2.4: OSTEOPENIA) (T score less than or equal to -2.5 to: OSTEOPOROSIS) Impression: Osteopenia. Patients with diagnosis of osteoporosis or osteopenia should have regular bone mineral density assess ment. For those eligible for Medicare, routine testing is allowed once every 2 years. Testing frequ ency can be increased for patients who have rapidly progressing disease or for those who are receivin g medical therapy to restore bone mass. Reviewed by: Tj Cheek MD on 01/17/2021 10:15 AM PST Approved by: Tj Cheek MD on 01/17/2021 10:15 AM PST Station ID: [id number]
== END 2021-01-17 08:22 | disposition home or self-care (01) ==
LOC: DI 08:21
DX: M85.89 Other specified disorders of bone density and structure, multiple sites (principal)

== ENCOUNTER 2021-01-30 08:00 | Outpatient (CLI) | payer MEDICARE, OTHER | END 2021-01-30 23:59 | disposition home or self-care (01) | LOC: LAB.WCP 08:00 | PROVIDERS: ATTEND Family Medicine | DX: I48.0 Paroxysmal atrial fibrillation (principal); Z79.01 Long term (current) use of anticoagulants ==

== ENCOUNTER 2021-03-01 08:00 | Outpatient (CLI) | payer MEDICARE, OTHER | END 2021-03-01 23:59 | disposition home or self-care (01) | LOC: LAB.WCP 08:00 | PROVIDERS: ATTEND Family Medicine | DX: I48.0 Paroxysmal atrial fibrillation (principal); Z79.01 Long term (current) use of anticoagulants; I63.9 Cerebral infarction, unspecified ==

== ENCOUNTER 2021-04-02 15:38 | Emergency (ER) | payer MEDICARE, OTHER ==
[2021-04-02 15:58] VITALS: BP 125/83
--- NOTE | 2021-04-02 16:05 | ED Physician Documentation ---
History of Present Illness - Stated complaint Stated Complaint: SOA/BACK PX - Additonal information Additional information: 80-year-old male presents to the emergency department for evaluation of acute right posterior back pain. He reports a pain deep in his lung below his scapula that has been present for about 24 hours. Not worse with movement. Denies feeling short of air. It is not exertional. He does have a chronic cough. 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 He is concerned that the pain in his chest could be a cancer with his histoyr of asbestos exposure. He has no hemoptysis. No weight loss or fevers. pt has a hx of DM, HTN and previosu stroke X3 (denies residual motor deficitis.) on coumadin no unilateral leg swelling, fevers, hemoptysis Review of Systems Constitutional: denies: Fever, Chills Eyes: reports: Reviewed and negative Ears: reports: Reviewed and negative Nose: reports: Reviewed and negative Throat: reports: Reviewed and negative Cardiac: reports: Chest pain / pressure. denies: Palpitations, Pedal edema, Calf pain Respiratory: reports: Cough. denies: Hemoptysis, Wheezing GI: denies: Abdominal Pain, Abdominal Swelling, Nausea, Vomiting : denies: Dysuria, Frequency, Hesitancy Skin: denies: Rash, Lesions Musculoskeletal: denies: Neck pain, Back pain Neurologic: denies: Generalized weakness, Focal weakness PD PAST MEDICAL HISTORY - Past Medical History Past Medical History: Yes Cardiovascular: Atrial fibrillation Respiratory: COPD Neuro: CVA Endocrine/Autoimmune: Type 2 diabetes : Kidney stones Musculoskeletal: Osteoarthritis - Past Surgical History Past Surgical History: Yes Ortho: Arthroscopic surgery - Present Medications Home Medications: Ambulatory Orders Medication Instructions Recorded Confirmed Acetaminophen [Tylenol Extra 1 tab PO QID PRN 03/18/15 07/10/16 Strength] Cholecalciferol [Vitamin D3] 800 mg PO DAILY 03/18/15 07/10/16 Folic Acid/Multivit-Min/Lutein 1 tab PO DAILY 03/18/15 07/10/16 [Centrum Silver Chewable Tablet] Metformin HCl [Metformin HCl ER] 750 mg PO DAILY 03/18/15 07/10/16 Pravastatin Sodium 10 mg PO DAILY 03/18/15 07/10/16 Metoprolol Succinate 50 mg PO BID 05/09/16 07/10/16 Apixaban [Eliquis] 1 tab PO DAILY 07/10/16 07/10/16 Folic Acid 1 tab PO DAILY 07/10/16 07/10/16 - Allergies Allergies/Adverse Reactions: Allergies Allergy/AdvReac Type Severity Reaction Status Date / Time lisinopril AdvReac Anxiety Verified 04/02/21 15:52 - Social History Does the pt smoke?: No Smoking Status: Never smoker Does the pt drink ETOH?: No Does the pt have substance abuse?: No - Immunizations Immunizations are current?: Yes PD ED PE EXPANDED - General General: Alert, Well developed/nourished - Neck Neck: Supple w/out meningeal sx. No: Adenopathy - Cardiac Cardiac: Regular Rate, Radial strong equal, Pedal strong equal, Cap refill < 2 sec. No: Murmur Present - Respiratory Respiratory: Clear to ausultation jade. No: Distress, Labored - Abdomen Abdomen: Normal Bowel sounds - Back Back: Normal exam. No: Vertebral tenderness, Soft tissue tenderness, CVA TTP right, CVA TTP left - Derm Derm: Normal color, Warm and dry. No: Rash, Petecchiae, Purpura - Neuro Neuro: Alert and Oriented X 3, CNII-XII intact - GCS Eye Opening: Spontaneous Motor: Obeys Commands Verbal: Oriented Total: 15 - Psych Psych: Normal Results - Vitals Vitals: Vital Signs - 24 hr 04/02/21 04/02/21 15:52 15:58 Temperature 36.5 C 36.5 C Heart Rate 77 77 Respiratory 16 16 Rate Blood Pressure 125/83 H 125/83 H O2 Saturation 97 99 Oxygen O2 Source Room air - EKG (time done) 1611 Rate: Rate (enter#) (63) Rhythm: NSR Petty: Normal Intervals: Normal DE QRS: Normal Ischemia: Q waves (inferior) Compare to prior EKG: Old EKG unavailable Computer interpretation: Agree with computer - Labs Labs: Laboratory Tests 04/02/21 04/02/21 04/02/21 16:07 16:07 16:07 WBC 5.3 RBC 5.27 Hgb 14.2 Hct 43.5 MCV 82.5 MCH 26.9 L MCHC 32.6 RDW 13.4 Plt Count 226 MPV 9.0 Neut # (Auto) 2.8 Lymph # (Auto) 1.6 [place] # (Auto) 0.5 Eos # (Auto) 0.3 Baso # (Auto) 0.1 Absolute Nucleated RBC 0.00 Nucleated RBC % 0.0 PT 36.6 H INR 3.6 H Sodium 136 Potassium 4.1 Chloride 101 Carbon Dioxide 25 Anion Gap 10.0 BUN 17 Creatinine 1.0 Estimated GFR (MDRD) 72 L Glucose 139 H Calcium 9.1 Total Bilirubin 0.7 AST 22 ALT 30 Alkaline Phosphatase 71 Troponin I High Sens Total Protein 7.4 Albumin 3.9 Globulin 3.5 Albumin/Globulin Ratio 1.1 Lipase 42 04/02/21 16:07 WBC RBC Hgb Hct MCV MCH MCHC RDW Plt Count MPV Neut # (Auto) Lymph # (Auto) [place] # (Auto) Eos # (Auto) Baso # (Auto) Absolute Nucleated RBC Nucleated RBC % PT INR Sodium Potassium Chloride Carbon Dioxide Anion Gap BUN Creatinine Estimated GFR (MDRD) Glucose Calcium Total Bilirubin AST ALT Alkaline Phosphatase Troponin I High Sens 5.7 Total Protein Albumin Globulin Albumin/Globulin Ratio Lipase - Rads (name of study) CXR Radiology: Final report received (No acute pulmonary process. Unchanged appearance of calcified pleural plaques most suggestive of prior asbestos exposure.) PD MEDICAL DECISION MAKING - ED course Complexity details: reviewed results, re-evaluated patient, d/w patient ED course: 80-year-old male presents the emergency department for evaluation of acute right posterior chest wall pain. Reports it began last night. 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 Screening EKG is nonischemic. High-sensitivity troponin is negative. His chest pain however is not reproducible on exam. Screening labs and electrolytes show no acute worrisome findings. His INR is noted to be elevated. He is on Coumadin for a history of previous stroke. He checked his INR yesterday and it was 3.6 and was advised to hold his dose. He will be advised to further hold the dose for an additional 24 hours. Chest x-ray today reveals stable calcified pleural plaques that are unchanged in appearance. Given lack of worsening cough fevers or hemoptysis, I did discuss the possibility with the patient that this could simply be musculoskeletal pain. His cardiopulmonary exam is otherwise reassuring. He has no hypoxia or tachypnea. Given the short duration of symptoms and the very stable chest x-ray examination my suspicion for acute cancer is lower. I did however offer the patient a CT scan for full differentiation but he declined. He feels stable with discharge home we will continue to follow-up with his primary care provider. Emergent return precautions were discussed. Departure - Departure Disposition: 01 Home, Self Care Clinical Impression: Posterior chest pain, Chronic cough, History of exposure to asbestos, Elevated INR Condition: Stable Record reviewed to determine appropriate education?: Yes Instructions[facility]Up: Fazal Stone MD [Primary Care Provider] - Comments: Trav butler were seen today in the emergency department for pain in the back of your chest that began yesterday evening. You do have a history of exposure to his best dose. As we discussed your screening labs, EKG and chest x-ray show no worrisome findings. You do have calcified plaques in your lungs that are common with this best dose exposure but they have not changed in appearance since your last chest x-ray. As we discussed my suspicion for cancer at this time is very low. However if your cough worsens, you have unintended weight loss or night sweats please return to the ER for a 2nd look. Your INR today remains elevated at 3.5. I do recommend that you continue to hold your dose of Coumadin tonight but you may begin to take tomorrow as otherwise scheduled.
--- NOTE | 2021-04-02 16:12 | XRAY Report ---
PROCEDURE: Chest 1 View X-Ray INDICATIONS: Chest Pain TECHNIQUE: One view of the chest was acquired. COMPARISON: Chest x-ray 04/29/2019, CT chest 02/01/2020 FINDINGS: Surgical changes and devices: None. Lungs and pleura: No pleural effusions or pneumothorax. Calcified pleural plaques are again identifi ed. Mediastinum: Mediastinal contours appear normal. Heart size is normal. Bones and chest wall: No suspicious bony lesions. Overlying soft tissues appear unremarkable. IMPRESSION: 1. No acute pulmonary process. 2. Unchanged appearance of calcified pleural plaques most suggestive of prior asbestosis exposure. Reviewed by: Yvonne Reilly MD on 04/02/2021 4:11 PM PDT Approved by: Yvonne Reilly MD on 04/02/2021 4:11 PM PDT Station ID: [id number]
[2021-04-02 16:14] LABS: BASOPHILS # (AUTO) 0.1 10^3/uL (0.0-0.1); BASOPHILS % (AUTO) 1.1 %; EOSINOPHILS # (AUTO) 0.3 10^3/uL (0.0-0.7); EOSINOPHILS % (AUTO) 5.1 %; HCT - HEMATOCRIT 43.5 % (42.0-52.0); HGB - HEMOGLOBIN 14.2 g/dL (14.0-18.0); LYMPHOCYTES # (AUTO) 1.6 10^3/uL (1.5-3.5); LYMPHOCYTES % (AUTO) 30.8 %; MEAN CORPUSCULAR HEMOGLOBIN 26.9 pg (27.0-31.0); MEAN CORPUSCULAR HGB CONC 32.6 g/dL (32.0-36.0); MEAN CORPUSCULAR VOLUME 82.5 fL (80.0-94.0); MONOCYTES # (AUTO) 0.5 10^3/uL (0.0-1.0); MONOCYTES % (AUTO) 9.4 %; NEUTROPHILS # (AUTO) 2.8 10^3/uL (1.5-6.6); NEUTROPHILS % (AUTO) 53.4 %; PLT - PLATELET COUNT 226 10^3/uL (130-450); RED BLOOD COUNT 5.27 10^6/uL (4.70-6.10); RED CELL DISTRIBUTION WIDTH 13.4 % (12.0-15.0); WHITE BLOOD COUNT 5.3 x10^3/uL (4.8-10.8)
[2021-04-02 16:21] LABS: INR 3.6 (0.8-1.2); PT - PROTHROMBIN TIME 36.6 secs (9.9-12.6)
[2021-04-02 16:30] LABS: ALBUMIN 3.9 g/dL (3.2-5.5); ALBUMIN/GLOBULIN RATIO 1.1 (1.0-2.2); BILIRUBIN,TOTAL 0.7 mg/dL (0.2-1.0); CALCIUM 9.1 mg/dL (8.5-10.3); POTASSIUM 4.1 mmol/L (3.5-5.0); TOTAL PROTEIN 7.4 g/dL (6.7-8.2)
== END 2021-04-02 17:11 | disposition home or self-care (01) ==
LOC: ED 15:38
DX: R07.89 Other chest pain (principal); R05 Cough; R79.1 Abnormal coagulation profile; I48.91 Unspecified atrial fibrillation; Z79.01 Long term (current) use of anticoagulants; I10 Essential (primary) hypertension; E11.9 Type 2 diabetes mellitus without complications; Z79.84 Long term (current) use of oral hypoglycemic drugs; Z77.090 Contact with and (suspected) exposure to asbestos
CPT/HCPCS: 36415; 80053; 83690; 84484; 85025; 85610; 93005; 99284

== ENCOUNTER 2021-04-10 08:00 | Outpatient (CLI) | payer MEDICARE, OTHER | END 2021-04-10 23:59 | disposition home or self-care (01) | LOC: LAB.WCP 08:00 | PROVIDERS: ATTEND Family Medicine | DX: I48.0 Paroxysmal atrial fibrillation (principal); I63.9 Cerebral infarction, unspecified; Z79.01 Long term (current) use of anticoagulants ==

== ENCOUNTER 2021-04-26 08:00 | Outpatient (CLI) | payer MEDICARE, OTHER | END 2021-04-26 23:59 | disposition home or self-care (01) | LOC: LAB.WCP 08:00 | PROVIDERS: ATTEND Family Medicine | DX: I63.9 Cerebral infarction, unspecified (principal); Z79.01 Long term (current) use of anticoagulants; I48.0 Paroxysmal atrial fibrillation ==

== ENCOUNTER 2021-05-10 08:00 | Outpatient (CLI) | payer MEDICARE, OTHER ==
[2021-05-10 18:28] LABS: CALCIUM 8.7 mg/dL (8.5-10.3); CREATININE 1.1 mg/dL (0.6-1.2); POTASSIUM 4.4 mmol/L (3.5-5.0)
[2021-05-10 20:20] LABS: ESTIMATED AVERAGE GLUCOSE 192 mg/dL (70-100); HEMOGLOBIN A1c% 8.3 % (4.27-6.07)
== END 2021-05-10 23:59 | disposition home or self-care (01) ==
LOC: LAB.WCP 08:00
PROVIDERS: ATTEND Family Medicine
DX: I48.0 Paroxysmal atrial fibrillation (principal); E11.9 Type 2 diabetes mellitus without complications
CPT/HCPCS: 36415; 80048; 83036

== ENCOUNTER 2021-06-10 08:00 | Outpatient (CLI) | payer MEDICARE, OTHER | END 2021-06-10 23:59 | disposition home or self-care (01) | LOC: LAB.WCP 08:00 | PROVIDERS: ATTEND Family Medicine | DX: I48.0 Paroxysmal atrial fibrillation (principal); Z79.01 Long term (current) use of anticoagulants; I63.9 Cerebral infarction, unspecified ==

== ENCOUNTER 2021-09-16 08:00 | Outpatient (CLI) | payer MEDICARE, OTHER | END 2021-09-16 23:59 | disposition home or self-care (01) | LOC: LAB.WCP 08:00 | PROVIDERS: ATTEND Family Medicine | DX: I48.0 Paroxysmal atrial fibrillation (principal); I63.9 Cerebral infarction, unspecified; Z79.01 Long term (current) use of anticoagulants ==

== ENCOUNTER 2021-10-02 08:00 | Outpatient (CLI) | payer MEDICARE, OTHER | END 2021-10-02 23:59 | disposition home or self-care (01) | LOC: LAB.WCP 08:00 | PROVIDERS: ATTEND Family Medicine | DX: I63.9 Cerebral infarction, unspecified (principal); I48.0 Paroxysmal atrial fibrillation; Z79.01 Long term (current) use of anticoagulants ==

== ENCOUNTER 2021-10-30 08:00 | Outpatient (CLI) | payer MEDICARE, OTHER ==
[2021-10-30 18:09] LABS: CALCIUM 8.8 mg/dL (8.5-10.3); CREATININE 0.9 mg/dL (0.6-1.2); POTASSIUM 4.4 mmol/L (3.5-5.0)
[2021-10-30 20:26] LABS: ESTIMATED AVERAGE GLUCOSE 160 mg/dL (70-100); HEMOGLOBIN A1c% 7.2 % (4.27-6.07)
== END 2021-10-30 23:59 | disposition home or self-care (01) ==
LOC: LAB.WCP 08:00
PROVIDERS: ATTEND Family Medicine
DX: G25.81 Restless legs syndrome (principal); I35.8 Other nonrheumatic aortic valve disorders; H53.461 Homonymous bilateral field defects, right side; I63.9 Cerebral infarction, unspecified; I48.0 Paroxysmal atrial fibrillation; E11.9 Type 2 diabetes mellitus without complications
CPT/HCPCS: 36415; 80048; 83036

== ENCOUNTER 2021-11-07 15:10 | Outpatient (CLI) | payer MEDICARE, OTHER ==
--- NOTE | 2021-11-07 16:22 | XRAY Report ---
PROCEDURE: Hip w/Pelvis 2-3V RT INDICATIONS: GLUTEAL TENDENTITIS OF RIGHT HIP TECHNIQUE: AP pelvis with lateral view(s) of the right hip(s). COMPARISON: None. FINDINGS: Bones: No fractures or dislocations. Mild to moderate bilateral hip joint osteophytic changes are s een with superior joint space narrowing and subchondral sclerosis. No evidence of avascular necrosis of femoral head. Pelvic ring appears intact. No suspicious bony lesions. Soft tissues: The visualized bowel gas pattern is normal. No suspicious soft tissue calcifications. IMPRESSION: Mild to moderate bilateral hip joint osteoarthritis. No right hip fracture or dislocation . No evidence of avascular necrosis. Reviewed by: Tj Cheek MD on 11/07/2021 4:21 PM PST Approved by: Tj Cheek MD on 11/07/2021 4:21 PM PST Station ID: [id number]
== END 2021-11-07 15:11 | disposition home or self-care (01) ==
LOC: DI.N 15:10
PROVIDERS: ATTEND Family Medicine
DX: M76.01 Gluteal tendinitis, right hip (principal); M16.0 Bilateral primary osteoarthritis of hip

== ENCOUNTER 2021-12-16 08:00 | Outpatient (CLI) | payer MEDICARE, OTHER | END 2021-12-16 23:59 | disposition home or self-care (01) | LOC: LAB.N 08:00 | PROVIDERS: ATTEND Family Medicine | DX: I48.0 Paroxysmal atrial fibrillation (principal); I63.9 Cerebral infarction, unspecified; Z79.01 Long term (current) use of anticoagulants ==

== ENCOUNTER 2022-02-10 08:00 | Outpatient (CLI) | payer MEDICARE, OTHER | END 2022-02-10 23:59 | disposition home or self-care (01) | LOC: LAB.N 08:00 | PROVIDERS: ATTEND Family Medicine | DX: I48.0 Paroxysmal atrial fibrillation (principal); I63.9 Cerebral infarction, unspecified; Z79.01 Long term (current) use of anticoagulants ==

== ENCOUNTER 2022-03-14 08:00 | Outpatient (CLI) | payer MEDICARE, OTHER | END 2022-03-14 23:59 | disposition home or self-care (01) | LOC: LAB.WCP 08:00 | PROVIDERS: ATTEND Family Medicine | DX: I48.0 Paroxysmal atrial fibrillation (principal); I63.9 Cerebral infarction, unspecified; Z79.01 Long term (current) use of anticoagulants ==

== ENCOUNTER 2022-04-25 08:00 | Outpatient (CLI) | payer MEDICARE, OTHER | END 2022-04-25 23:59 | disposition home or self-care (01) | LOC: LAB.WCP 08:00 | PROVIDERS: ATTEND Family Medicine | DX: I48.0 Paroxysmal atrial fibrillation (principal); I63.9 Cerebral infarction, unspecified; Z79.01 Long term (current) use of anticoagulants ==

== ENCOUNTER 2022-05-06 15:47 | Outpatient (CLI) | payer MEDICARE, OTHER ==
[2022-05-06 18:39] LABS: BASOPHILS # (AUTO) 0.1 10^3/uL (0.0-0.1); EOSINOPHILS # (AUTO) 0.3 10^3/uL (0.0-0.7); EOSINOPHILS % (AUTO) 4.7 %; HCT - HEMATOCRIT 42.3 % (42.0-52.0); HGB - HEMOGLOBIN 13.3 g/dL (14.0-18.0); LYMPHOCYTES # (AUTO) 1.8 10^3/uL (1.5-3.5); LYMPHOCYTES % (AUTO) 25.9 %; MEAN CORPUSCULAR HEMOGLOBIN 25.8 pg (27.0-31.0); MEAN CORPUSCULAR HGB CONC 31.4 g/dL (32.0-36.0); MEAN CORPUSCULAR VOLUME 82.1 fL (80.0-94.0); MEAN PLATELET VOLUME 10.5 fL (7.4-11.4); MONOCYTES # (AUTO) 0.6 10^3/uL (0.0-1.0); MONOCYTES % (AUTO) 8.4 %; NEUTROPHILS # (AUTO) 4.2 10^3/uL (1.5-6.6); NEUTROPHILS % (AUTO) 59.7 %; PLT - PLATELET COUNT 217 10^3/uL (130-450); RED BLOOD COUNT 5.15 10^6/uL (4.70-6.10); RED CELL DISTRIBUTION WIDTH 13.8 % (12.0-15.0)
[2022-05-06 18:58] LABS: ALBUMIN 3.7 g/dL (3.2-5.5); ALBUMIN/GLOBULIN RATIO 1.2 (1.0-2.2); ALKALINE PHOSPHATASE 55 IU/L (42-121); ALT ALANINE AMINOTRANSFERASE 16 IU/L (10-60); AST ASPARTATE AMINOTRANSFERASE 16 IU/L (10-42); BILIRUBIN,TOTAL 0.5 mg/dL (0.2-1.0); BUN - BLOOD UREA NITROGEN 18 mg/dL (6-20); CALCIUM 9.6 mg/dL (8.5-10.3); CARBON DIOXIDE - CO2 30 mmol/L (21-32); CHLORIDE 101 mmol/L (101-111); CHOL/HDL RATIO 4.5 (<5.0); CHOLESTEROL 125 mg/dL; GFR - MDRD 71 (>89); GLUCOSE 107 mg/dL (70-100); HDL CHOLESTEROL 28 mg/dL; LDL CHOLESTEROL,CALCULATED 59 mg/dL; LDL/HDL RATIO 2.1 (<3.6); POTASSIUM 4.4 mmol/L (3.5-5.0); SODIUM 139 mmol/L (135-145); TOTAL PROTEIN 6.9 g/dL (6.7-8.2); TRIGLYCERIDES 192 mg/dL; VLDL CHOLESTEROL 38 mg/dL
[2022-05-06 19:07] LABS: THYROID STIMULATING HORMONE 2.71 uIU/mL (0.34-5.60)
[2022-05-06 20:29] LABS: ESTIMATED AVERAGE GLUCOSE 163 mg/dL (70-100); HEMOGLOBIN A1c% 7.3 % (4.27-6.07)
== END 2022-05-06 15:48 | disposition home or self-care (01) ==
LOC: LAB.N 15:47
PROVIDERS: ATTEND Family Medicine
DX: E11.9 Type 2 diabetes mellitus without complications (principal); G25.81 Restless legs syndrome; I35.8 Other nonrheumatic aortic valve disorders; Z79.01 Long term (current) use of anticoagulants; I63.9 Cerebral infarction, unspecified; I48.0 Paroxysmal atrial fibrillation
CPT/HCPCS: 36415; 80053; 80061; 82043; 82570; 83036; 83721; 84443; 85025

== ENCOUNTER 2022-05-07 12:37 | Outpatient (CLI) | payer MEDICARE, OTHER ==
--- NOTE | 2022-05-07 16:43 | XRAY Report ---
PROCEDURE: Ribs 2 View RT INDICATIONS: ACQUIRED DEFORMITY OF RIGHT RIB TECHNIQUE: 2 views of the right ribs were acquired. COMPARISON: None FINDINGS: Surgical changes and devices: None. Bones and chest wall: No fractures or dislocations. No suspicious bony lesions. Overlying soft tis sues appear unremarkable. Lungs and pleura: The visualized lung appears clear. No pleural effusions or pneumothorax are visib le. 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 IMPRESSION: Nondisplaced rib fracture. No rib deformity identified. Reviewed by: Kassie Medley MD, PhD on 05/07/2022 4:42 PM PDT Approved by: Kassie Medley MD, PhD on 05/07/2022 4:42 PM PDT Station ID: [id number]
== END 2022-05-07 12:38 | disposition home or self-care (01) ==
LOC: DI 12:37
PROVIDERS: ATTEND Family Medicine
DX: M95.4 Acquired deformity of chest and rib (principal)

== ENCOUNTER 2022-07-11 08:00 | Outpatient (CLI) | payer MEDICARE, OTHER | END 2022-07-11 08:01 | disposition home or self-care (01) | LOC: LAB.WCP 08:00 | PROVIDERS: ATTEND Family Medicine | DX: I48.0 Paroxysmal atrial fibrillation (principal); Z95.2 Presence of prosthetic heart valve; Z79.01 Long term (current) use of anticoagulants; I63.9 Cerebral infarction, unspecified ==

== ENCOUNTER 2022-08-13 08:00 | Outpatient (CLI) | payer MEDICARE, OTHER | END 2022-08-13 23:59 | disposition home or self-care (01) | LOC: LAB.WCP 08:00 | PROVIDERS: ATTEND Family Medicine | DX: Z79.01 Long term (current) use of anticoagulants (principal); I63.9 Cerebral infarction, unspecified; I48.0 Paroxysmal atrial fibrillation; Z95.2 Presence of prosthetic heart valve ==

== ENCOUNTER 2022-08-14 10:26 | Outpatient (CLI) | payer MEDICARE, OTHER ==
[2022-08-14 12:03] LABS: BASOPHILS # (AUTO) 0.1 10^3/uL (0.0-0.1); BASOPHILS % (AUTO) 0.7 %; EOSINOPHILS # (AUTO) 0.3 10^3/uL (0.0-0.7); EOSINOPHILS % (AUTO) 3.6 %; HCT - HEMATOCRIT 43.2 % (42.0-52.0); HGB - HEMOGLOBIN 13.5 g/dL (14.0-18.0); LYMPHOCYTES # (AUTO) 1.6 10^3/uL (1.5-3.5); LYMPHOCYTES % (AUTO) 21.7 %; MEAN CORPUSCULAR HEMOGLOBIN 25.5 pg (27.0-31.0); MEAN CORPUSCULAR HGB CONC 31.3 g/dL (32.0-36.0); MEAN CORPUSCULAR VOLUME 81.7 fL (80.0-94.0); MEAN PLATELET VOLUME 9.9 fL (7.4-11.4); MONOCYTES # (AUTO) 0.6 10^3/uL (0.0-1.0); MONOCYTES % (AUTO) 7.9 %; NEUTROPHILS # (AUTO) 4.9 10^3/uL (1.5-6.6); NEUTROPHILS % (AUTO) 65.8 %; PLT - PLATELET COUNT 206 10^3/uL (130-450); RED BLOOD COUNT 5.29 10^6/uL (4.70-6.10); WHITE BLOOD COUNT 7.5 x10^3/uL (4.8-10.8)
[2022-08-14 12:27] LABS: ESTIMATED AVERAGE GLUCOSE 123 mg/dL (70-100); HEMOGLOBIN A1c% 5.9 % (4.27-6.07)
[2022-08-14 12:46] LABS: THYROID STIMULATING HORMONE 3.57 uIU/mL (0.34-5.60)
[2022-08-14 12:47] LABS: ALBUMIN 3.8 g/dL (3.2-5.5); ALBUMIN/GLOBULIN RATIO 1.2 (1.0-2.2); ALKALINE PHOSPHATASE 60 IU/L (42-121); ALT ALANINE AMINOTRANSFERASE 12 IU/L (10-60); AST ASPARTATE AMINOTRANSFERASE 16 IU/L (10-42); BILIRUBIN,TOTAL 0.6 mg/dL (0.2-1.0); BUN - BLOOD UREA NITROGEN 16 mg/dL (6-20); CALCIUM 9.3 mg/dL (8.5-10.3); CARBON DIOXIDE - CO2 28 mmol/L (21-32); CHLORIDE 105 mmol/L (101-111); CHOL/HDL RATIO 4.3 (<5.0); CHOLESTEROL 124 mg/dL; GFR - MDRD 71 (>89); GLUCOSE 88 mg/dL (70-100); HDL CHOLESTEROL 29 mg/dL; LDL CHOLESTEROL,CALCULATED 66 mg/dL; LDL/HDL RATIO 2.3 (<3.6); POTASSIUM 4.2 mmol/L (3.5-5.0); SODIUM 140 mmol/L (135-145); TOTAL PROTEIN 7.1 g/dL (6.7-8.2); TRIGLYCERIDES 143 mg/dL; VLDL CHOLESTEROL 29 mg/dL
[2022-08-14 13:18] LABS: CREATININE,URINE 111.6 mg/dL
[2022-08-14 14:13] LABS: MICROALBUM/CREATININE RATIO,UR 6.3 ug/mg (<30.0); MICROALBUMIN,URINE 0.7 mg/dL (0-300.0)
== END 2022-08-14 10:27 | disposition home or self-care (01) ==
LOC: LAB.N 10:26
PROVIDERS: ATTEND Family Medicine
DX: E11.9 Type 2 diabetes mellitus without complications (principal); I35.0 Nonrheumatic aortic (valve) stenosis; Z95.2 Presence of prosthetic heart valve; F32.A Depression, unspecified; G25.81 Restless legs syndrome; J61 Pneumoconiosis due to asbestos and other mineral fibers; I48.0 Paroxysmal atrial fibrillation; M54.30 Sciatica, unspecified side
CPT/HCPCS: 36415; 80053; 80061; 82043; 82570; 83036; 83721; 84443; 85025

== ENCOUNTER 2022-09-15 08:00 | Outpatient (CLI) | payer MEDICARE, OTHER | END 2022-09-15 23:59 | disposition home or self-care (01) | LOC: LAB.WCP 08:00 | PROVIDERS: ATTEND Family Medicine | DX: I48.0 Paroxysmal atrial fibrillation (principal); Z95.2 Presence of prosthetic heart valve; Z79.01 Long term (current) use of anticoagulants; I63.9 Cerebral infarction, unspecified ==

== ENCOUNTER 2022-11-28 11:11 | Outpatient (CLI) | payer MEDICARE, OTHER ==
[2022-11-28 18:07] LABS: CALCIUM 8.9 mg/dL (8.5-10.3); CREATININE 1.2 mg/dL (0.6-1.2); POTASSIUM 4.5 mmol/L (3.5-5.0)
[2022-11-29 08:44] LABS: ESTIMATED AVERAGE GLUCOSE 128 mg/dL (70-100); HEMOGLOBIN A1c% 6.1 % (4.27-6.07)
== END 2022-11-28 11:12 | disposition home or self-care (01) ==
LOC: LAB.N 11:11
PROVIDERS: ATTEND Family Medicine
DX: E11.9 Type 2 diabetes mellitus without complications (principal)
CPT/HCPCS: 36415; 80048; 83036

== ENCOUNTER 2022-12-26 08:00 | Outpatient (CLI) | payer MEDICARE, OTHER | END 2022-12-26 23:59 | disposition home or self-care (01) | LOC: LAB.WCP 08:00 | PROVIDERS: ATTEND Family Medicine | DX: I48.0 Paroxysmal atrial fibrillation (principal); I63.9 Cerebral infarction, unspecified; Z79.01 Long term (current) use of anticoagulants; Z95.2 Presence of prosthetic heart valve ==

== ENCOUNTER 2023-01-28 08:00 | Outpatient (CLI) | payer MEDICARE, OTHER | END 2023-01-28 23:59 | disposition home or self-care (01) | LOC: LAB.N 08:00 | PROVIDERS: ATTEND Family Medicine | DX: I48.0 Paroxysmal atrial fibrillation (principal); Z95.2 Presence of prosthetic heart valve; Z79.01 Long term (current) use of anticoagulants; I63.9 Cerebral infarction, unspecified ==

== ENCOUNTER 2023-02-23 08:00 | Outpatient (CLI) | payer MEDICARE, OTHER | END 2023-02-23 23:59 | disposition home or self-care (01) | LOC: LAB.N 08:00 | PROVIDERS: ATTEND Family Medicine | DX: Z79.01 Long term (current) use of anticoagulants (principal); Z95.2 Presence of prosthetic heart valve ==

== ENCOUNTER 2023-03-30 08:00 | Outpatient (CLI) | payer MEDICARE, OTHER | END 2023-03-30 23:59 | disposition home or self-care (01) | LOC: LAB.WCP 08:00 | PROVIDERS: ATTEND Family Medicine | DX: I48.0 Paroxysmal atrial fibrillation (principal); Z79.01 Long term (current) use of anticoagulants; Z95.2 Presence of prosthetic heart valve ==

== ENCOUNTER 2023-05-18 08:00 | Outpatient (CLI) | payer MEDICARE, OTHER | END 2023-05-18 23:59 | disposition home or self-care (01) | LOC: LAB.N 08:00 | PROVIDERS: ATTEND Family Medicine | DX: Z79.01 Long term (current) use of anticoagulants (principal); I48.0 Paroxysmal atrial fibrillation; Z95.2 Presence of prosthetic heart valve ==

== ENCOUNTER 2023-05-22 14:29 | Outpatient (CLI) | payer MEDICARE, OTHER ==
[2023-05-22 17:58] LABS: BASOPHILS % (AUTO) 0.5 %; EOSINOPHILS # (AUTO) 0.2 10^3/uL (0.0-0.7); EOSINOPHILS % (AUTO) 3.8 %; HCT - HEMATOCRIT 38.8 % (42.0-52.0); LYMPHOCYTES # (AUTO) 1.3 10^3/uL (1.5-3.5); LYMPHOCYTES % (AUTO) 20.8 %; MEAN CORPUSCULAR HEMOGLOBIN 26.2 pg (27.0-31.0); MEAN CORPUSCULAR HGB CONC 30.9 g/dL (32.0-36.0); MEAN CORPUSCULAR VOLUME 84.7 fL (80.0-94.0); MEAN PLATELET VOLUME 10.3 fL (7.4-11.4); MONOCYTES # (AUTO) 0.6 10^3/uL (0.0-1.0); MONOCYTES % (AUTO) 10.2 %; NEUTROPHILS # (AUTO) 3.9 10^3/uL (1.5-6.6); NEUTROPHILS % (AUTO) 64.4 %; PLT - PLATELET COUNT 240 10^3/uL (130-450); RED BLOOD COUNT 4.58 10^6/uL (4.70-6.10); RED CELL DISTRIBUTION WIDTH 13.2 % (12.0-15.0)
[2023-05-22 18:24] LABS: ALBUMIN 3.2 g/dL (3.2-5.5); ALBUMIN/GLOBULIN RATIO 0.9 (1.0-2.2); ALKALINE PHOSPHATASE 63 IU/L (42-121); ALT ALANINE AMINOTRANSFERASE 16 IU/L (10-60); AST ASPARTATE AMINOTRANSFERASE 17 IU/L (10-42); BILIRUBIN,TOTAL 0.6 mg/dL (0.2-1.0); BUN - BLOOD UREA NITROGEN 14 mg/dL (6-20); CALCIUM 8.8 mg/dL (8.5-10.3); CARBON DIOXIDE - CO2 28 mmol/L (21-32); CHLORIDE 104 mmol/L (101-111); CHOL/HDL RATIO 4.6 (<5.0); CHOLESTEROL 119 mg/dL; CREATININE 0.9 mg/dL (0.6-1.2); GFR - MDRD 80 (>89); GLUCOSE 162 mg/dL (70-100); HDL CHOLESTEROL 26 mg/dL; LDL CHOLESTEROL,CALCULATED 58 mg/dL; LDL/HDL RATIO 2.2 (<3.6); POTASSIUM 4.3 mmol/L (3.5-5.0); SODIUM 137 mmol/L (135-145); TOTAL PROTEIN 6.6 g/dL (6.7-8.2); TRIGLYCERIDES 173 mg/dL; VLDL CHOLESTEROL 35 mg/dL
[2023-05-22 18:36] LABS: THYROID STIMULATING HORMONE 2.42 uIU/mL (0.34-5.60)
== END 2023-05-22 14:30 | disposition home or self-care (01) ==
LOC: LAB.N 14:29
PROVIDERS: ATTEND Family Medicine
DX: E11.9 Type 2 diabetes mellitus without complications (principal); M54.16 Radiculopathy, lumbar region; Z95.2 Presence of prosthetic heart valve; G25.81 Restless legs syndrome; I63.9 Cerebral infarction, unspecified; I48.0 Paroxysmal atrial fibrillation; Z12.5 Encounter for screening for malignant neoplasm of prostate
CPT/HCPCS: 36415; 80053; 80061; 84443; 85025; G0103; 83721; 84153

== ENCOUNTER 2023-06-17 08:00 | Outpatient (CLI) | payer MEDICARE, OTHER ==
[2023-06-17 16:00] LABS: BILIRUBIN,URINE NEGATIVE (NEGATIVE); GLUCOSE, URINE (UA) NEGATIVE (NEGATIVE); KETONES,URINE (UA) TRACE mg/dL (NEGATIVE); LEUKOCYTE ESTERASE, URINE TRACE (NEGATIVE); NITRITE,URINE NEGATIVE (NEGATIVE); OCCULT BLOOD,URINE NEGATIVE (NEGATIVE); PH,URINE 5.5 PH (5.0-7.5); PROTEIN,URINE NEGATIVE (NEGATIVE); UROBILINOGEN,URINE 0.2 (NORMAL) E.U./dL (NORMAL)
[2023-06-17 16:02] LABS: CLARITY,URINE CLEAR (CLEAR)
[2023-06-17 16:14] LABS: BACTERIA,URINE Rare /HPF (None Seen); RBC,URINE 0-5 /HPF (0-5); SQUAMOUS EPITHELIAL CELL,UR NONE SEEN (<= Few)
== END 2023-06-17 23:59 | disposition home or self-care (01) ==
LOC: LAB 08:00
PROVIDERS: ATTEND Urology
DX: R32 Unspecified urinary incontinence (principal)
CPT/HCPCS: 81001; 87086

== ENCOUNTER 2023-09-23 14:10 | Outpatient (CLI) | payer MEDICARE, OTHER ==
[2023-09-23 17:34] LABS: BASOPHILS # (AUTO) 0.1 10^3/uL (0.0-0.1); BASOPHILS % (AUTO) 0.8 %; EOSINOPHILS # (AUTO) 0.3 10^3/uL (0.0-0.7); EOSINOPHILS % (AUTO) 3.5 %; HCT - HEMATOCRIT 40.8 % (42.0-52.0); HGB - HEMOGLOBIN 12.5 g/dL (14.0-18.0); LYMPHOCYTES # (AUTO) 1.3 10^3/uL (1.5-3.5); LYMPHOCYTES % (AUTO) 17.5 %; MEAN CORPUSCULAR HEMOGLOBIN 25.8 pg (27.0-31.0); MEAN CORPUSCULAR HGB CONC 30.6 g/dL (32.0-36.0); MEAN CORPUSCULAR VOLUME 84.1 fL (80.0-94.0); MEAN PLATELET VOLUME 9.9 fL (7.4-11.4); MONOCYTES # (AUTO) 0.6 10^3/uL (0.0-1.0); MONOCYTES % (AUTO) 8.5 %; NEUTROPHILS # (AUTO) 5.2 10^3/uL (1.5-6.6); NEUTROPHILS % (AUTO) 69.4 %; PLT - PLATELET COUNT 212 10^3/uL (130-450); RED BLOOD COUNT 4.85 10^6/uL (4.70-6.10); WHITE BLOOD COUNT 7.5 x10^3/uL (4.8-10.8)
[2023-09-23 18:21] LABS: ALBUMIN 3.8 g/dL (3.2-5.5); ALBUMIN/GLOBULIN RATIO 1.3 (1.0-2.2); BILIRUBIN,TOTAL 0.6 mg/dL (0.2-1.0); CALCIUM 9.1 mg/dL (8.5-10.3); POTASSIUM 4.5 mmol/L (3.5-4.5); TOTAL PROTEIN 6.7 g/dL (6.4-8.9)
[2023-09-23 18:24] LABS: THYROID STIMULATING HORMONE 3.15 uIU/mL (0.34-5.60)
[2023-09-23 21:06] LABS: ESTIMATED AVERAGE GLUCOSE 148 mg/dL (70-100); HEMOGLOBIN A1c% 6.8 % (4.27-6.07)
== END 2023-09-23 14:11 | disposition home or self-care (01) ==
LOC: LAB.N 14:10
PROVIDERS: ATTEND Family Medicine
DX: E11.9 Type 2 diabetes mellitus without complications (principal); R32 Unspecified urinary incontinence; R39.15 Urgency of urination; I63.9 Cerebral infarction, unspecified; I48.0 Paroxysmal atrial fibrillation; E78.5 Hyperlipidemia, unspecified
CPT/HCPCS: 36415; 80053; 83036; 84443; 85025

== ENCOUNTER 2023-12-04 08:00 | Outpatient (CLI) | payer MEDICARE, OTHER | END 2023-12-04 08:01 | disposition home or self-care (01) | LOC: LAB.WCP 08:00 | PROVIDERS: ATTEND Family Medicine | DX: I48.0 Paroxysmal atrial fibrillation (principal); I63.9 Cerebral infarction, unspecified; Z95.2 Presence of prosthetic heart valve; Z79.01 Long term (current) use of anticoagulants ==

== ENCOUNTER 2024-01-05 12:56 | Outpatient (CLI) | payer MEDICARE, OTHER ==
[2024-01-05 18:20] LABS: CALCIUM 9.4 mg/dL (8.5-10.3); CREATININE 1.1 mg/dL (0.6-1.3); POTASSIUM 4.4 mmol/L (3.5-4.5)
[2024-01-05 21:17] LABS: ESTIMATED AVERAGE GLUCOSE 171 mg/dL (70-100); HEMOGLOBIN A1c% 7.6 % (4.27-6.07)
== END 2024-01-05 12:57 | disposition home or self-care (01) ==
LOC: LAB.N 12:56
PROVIDERS: ATTEND Family Medicine
DX: E11.9 Type 2 diabetes mellitus without complications (principal)
CPT/HCPCS: 36415; 80048; 83036

== ENCOUNTER 2024-01-22 23:32 | Emergency (ER) | payer MEDICARE, OTHER ==
[2024-01-22] MEDS: SODIUM CHLORIDE 0.9% 1,000 ML IV STA (23:58)
[2024-01-22 23:59] LABS: BASOPHILS # (AUTO) 0.1 10^3/uL (0.0-0.1); BASOPHILS % (AUTO) 0.9 %; EOSINOPHILS # (AUTO) 0.3 10^3/uL (0.0-0.7); EOSINOPHILS % (AUTO) 4.6 %; HCT - HEMATOCRIT 39.1 % (42.0-52.0); HGB - HEMOGLOBIN 12.1 g/dL (14.0-18.0); LYMPHOCYTES # (AUTO) 1.7 10^3/uL (1.5-3.5); LYMPHOCYTES % (AUTO) 24.4 %; MEAN CORPUSCULAR HEMOGLOBIN 26.1 pg (27.0-31.0); MEAN CORPUSCULAR HGB CONC 30.9 g/dL (32.0-36.0); MEAN CORPUSCULAR VOLUME 84.4 fL (80.0-94.0); MONOCYTES # (AUTO) 0.7 10^3/uL (0.0-1.0); MONOCYTES % (AUTO) 9.9 %; NEUTROPHILS # (AUTO) 4.2 10^3/uL (1.5-6.6); NEUTROPHILS % (AUTO) 59.9 %; PLT - PLATELET COUNT 220 10^3/uL (130-450); RED BLOOD COUNT 4.63 10^6/uL (4.70-6.10); RED CELL DISTRIBUTION WIDTH 13.2 % (12.0-15.0)
[2024-01-23 00:16] LABS: ALBUMIN 3.8 g/dL (3.2-5.5); ALBUMIN/GLOBULIN RATIO 1.3 (1.0-2.2); BILIRUBIN,TOTAL 0.5 mg/dL (0.2-1.0); CALCIUM 9.4 mg/dL (8.5-10.3); POTASSIUM 4.1 mmol/L (3.5-4.5); TOTAL PROTEIN 6.7 g/dL (6.4-8.9)
[2024-01-23 00:26] LABS: BILIRUBIN,URINE NEGATIVE (NEGATIVE); GLUCOSE, URINE (UA) NEGATIVE (NEGATIVE); KETONES,URINE (UA) NEGATIVE (NEGATIVE); LEUKOCYTE ESTERASE, URINE NEGATIVE (NEGATIVE); NITRITE,URINE NEGATIVE (NEGATIVE); OCCULT BLOOD,URINE LARGE (NEGATIVE); PROTEIN,URINE TRACE mg/dL (NEGATIVE); UROBILINOGEN,URINE 0.2 (NORMAL) E.U./dL (NORMAL)
[2024-01-23 00:49] LABS: CLARITY,URINE CLEAR (CLEAR); WBC,URINE 0-3 /HPF (0-3)
[2024-01-23 00:50] LABS: BACTERIA,URINE None Seen /HPF (None Seen); RBC,URINE TNTC /HPF (0-5); SQUAMOUS EPITHELIAL CELL,UR NONE SEEN (<= Few)
--- NOTE | 2024-01-23 01:45 | ED Physician Documentation ---
PD HPI MALE - Stated complaint Stated Complaint: - Chief complaint Chief Complaint: Abd Pain - History obtained from History obtained from: Patient - Additional information Additional information: HPI from patient. Patient complains of gross hematuria noted this evening. Denies history of hematuria, although he does have a history of kidney stones. He also notes episodic right flank pain that radiates to the right upper paralumbar region; he says this has been going on for a few weeks. Patient says his flank pain is not consistent with symptoms associated with his previous renal colic episodes. Patient's medications include warfarin (which she takes for atrial fibrillation). Review of Systems Constitutional: denies: Fever, Chills, Sweats GI: denies: Abdominal Pain (right flank pain but no abdominal pain per se), Nausea, Vomiting : reports: Hematuria. denies: Dysuria, Frequency PD PAST MEDICAL HISTORY - Past Medical History Past Medical History: Yes Cardiovascular: Atrial fibrillation Respiratory: COPD Neuro: CVA Endocrine/Autoimmune: Type 2 diabetes : Kidney stones Musculoskeletal: Osteoarthritis - Past Surgical History Past Surgical History: Yes Ortho: Arthroscopic surgery - Present Medications Home Medications: Ambulatory Orders Medication Instructions Recorded Confirmed Acetaminophen [Tylenol Extra 1 tab PO QID PRN 03/18/15 01/23/24 Strength] Cholecalciferol [Vitamin D3] 800 mg PO DAILY 03/18/15 01/23/24 Folic Acid/Multivit-Min/Lutein 1 tab PO DAILY 03/18/15 01/23/24 [Centrum Silver Chewable Tablet] Metformin HCl [Metformin HCl ER] 750 mg PO DAILY 03/18/15 01/23/24 Pravastatin Sodium 10 mg PO DAILY 03/18/15 01/23/24 Metoprolol Succinate 50 mg PO BID 05/09/16 01/23/24 Apixaban [Eliquis] 1 tab PO DAILY 07/10/16 01/23/24 Folic Acid 1 tab PO DAILY 07/10/16 01/23/24 Benzonatate [Tessalon] 200 mg PO TID PRN #30 cap 11/01/22 - Allergies Allergies/Adverse Reactions: Allergies Allergy/AdvReac Type Severity Reaction Status Date / Time lisinopril AdvReac Anxiety Verified 01/22/24 23:43 - Social History Does the pt smoke?: No Smoking Status: Never smoker Does the pt drink ETOH?: No Does the pt have substance abuse?: No - Immunizations Immunizations are current?: Yes - POLST Patient has POLST: No PD ED PE NORMAL - Vitals Vital signs reviewed: Yes - General General: Alert and oriented X 3, No acute distress, Well developed/nourished - Cardiac Cardiac: RRR - Abdomen Abdomen: Soft, Non tender - Back Back: No CVA TTP - Derm Derm: Normal color, No rash Results - Vitals Vitals: Vital Signs - 24 hr 01/22/24 01/23/24 01/23/24 23:37 00:37 02:56 Temperature 36.3 C L Heart Rate 72 69 70 Respiratory 16 16 16 Rate Blood Pressure 143/57 H 160/59 H O2 Saturation 97 99 98 01/23/24 03:34 Temperature Heart Rate 65 Respiratory 20 Rate Blood Pressure 153/56 H O2 Saturation 97 Oxygen O2 Source Room air - Labs Labs: Laboratory Tests 01/22/24 01/22/24 01/22/24 23:46 23:54 23:54 WBC 7.0 RBC 4.63 L Hgb 12.1 L Hct 39.1 L MCV 84.4 MCH 26.1 L MCHC 30.9 L RDW 13.2 Plt Count 220 MPV 10.0 Neut # (Auto) 4.2 Lymph # (Auto) 1.7 [place] # (Auto) 0.7 Eos # (Auto) 0.3 Baso # (Auto) 0.1 Absolute Nucleated RBC 0.00 Nucleated RBC % 0.0 PT INR Sodium 136 Potassium 4.1 Chloride 102 Carbon Dioxide 29 Anion Gap 5.0 L BUN 21 H Creatinine 1.0 Estimated GFR (MDRD) 71 L Glucose 160 H Calcium 9.4 Total Bilirubin 0.5 AST 16 ALT 14 Alkaline Phosphatase 84 Total Protein 6.7 Albumin 3.8 Globulin 2.9 Albumin/Globulin Ratio 1.3 Lipase 47 Urine Color Cancelled Urine Clarity Cancelled Urine pH Cancelled Ur Specific [place] Cancelled Urine Protein Cancelled Urine Glucose (UA) Cancelled Urine Ketones Cancelled Urine Occult Blood Cancelled Urine Nitrite Cancelled Urine Bilirubin Cancelled Urine Urobilinogen Cancelled Ur Leukocyte Esterase Cancelled Urine RBC Urine WBC Ur Squamous Epith Cells Urine Bacteria Ur Microscopic Review Cancelled Urine Culture Comments Cancelled 01/22/24 01/23/24 23:54 00:20 WBC RBC Hgb Hct MCV MCH MCHC RDW Plt Count MPV Neut # (Auto) Lymph # (Auto) [place] # (Auto) Eos # (Auto) Baso # (Auto) Absolute Nucleated RBC Nucleated RBC % PT 22.1 H INR 2.1 H Sodium Potassium Chloride Carbon Dioxide Anion Gap BUN Creatinine Estimated GFR (MDRD) Glucose Calcium Total Bilirubin AST ALT Alkaline Phosphatase Total Protein Albumin Globulin Albumin/Globulin Ratio Lipase Urine Color RED/BLOODY Urine Clarity CLEAR Urine pH 6.0 Ur Specific [place] <=1.005 Urine Protein TRACE Urine Glucose (UA) NEGATIVE Urine Ketones NEGATIVE Urine Occult Blood LARGE H Urine Nitrite NEGATIVE Urine Bilirubin NEGATIVE Urine Urobilinogen 0.2 (NORMAL) Ur Leukocyte Esterase NEGATIVE Urine RBC TNTC H Urine WBC 0-3 Ur Squamous Epith Cells NONE SEEN Urine Bacteria None Seen Ur Microscopic Review INDICATED Urine Culture Comments - Rads (name of study) CT A/P with IV contrast Relevant Findings:: Prelim report reviewed, See rad report PD Medical Decision Making - ED course Complexity details: reviewed results, re-evaluated patient, considered differential, d/w patient ED course: No concerning nor diagnostic findings on CBC, ER abdominal panel. Urinalysis has TNTC red blood cells without other abnormality. CT of the abdomen/pelvis with IV contrast demonstrates an obstructing 3-4 mm right-sided ureteral calculus. There are several, incidental findings as well (such as pleural-based calcifications, hepatic steatosis, diverticulosis). The patient is in NAD throughout his ED stay. The right-sided ureteral stone would certainly account for both his hematuria and his episodic right flank pain. The patient declines analgesics during ED stay. He is already taking daily tamsulosin. I discussed the results with the patient, return precautions are reviewed, and I recommended he contact his urologist to arrange for next available appointment for follow-up/reevaluation. Departure - Departure Disposition: 01 Home, Self Care Clinical Impression: Renal colic on right side Hematuria Qualifiers: Hematuria type: gross Qualified Code(s): R31.0 - Gross hematuria Condition: Good Instructions: ED Stone Renal W Colic Comments: There were no concerning findings on the blood tests performed tonight. The urinalysis confirms that you have blood in the urine but there are no other abnormalities on the urinalysis. The CT scan of your abdomen and pelvis show a right-sided kidney stone. This would explain the blood in your urine as well as a likely explanation for your ongoing right-sided flank pain. Contact your urologist on Thursday when the office is next open to arrange for next available appointment for follow-up/reevaluation. Forms: PCP List Discharge Date/Time: 01/23/24 03:35
[2024-01-23] MEDS ORDERED: iohexoL-300 100 ML VIAL ONE (02:07)
[2024-01-23 02:08] LABS: INR 2.1 (0.8-1.2); PT - PROTHROMBIN TIME 22.1 secs (9.9-12.6)
[2024-01-23] MEDS: iohexoL-300 100 ML VIAL IVP ONE (02:42)
[2024-01-23 03:39] VITALS: BP 153/56; O2SAT 97
--- NOTE | 2024-01-23 07:58 | CT Report ---
PROCEDURE: Abdomen/Pelvis W INDICATIONS: hematuria, right flank pain CONTRAST: 100 ML OMNI 300 TECHNIQUE: After the administration of intravenous contrast, a CT scan of the abdomen and pelvis was performed. Images were recorded and evaluated at appropriate window settings. Reformats: coronal and sagittal. F or radiation dose reduction, the following was used: automated exposure control, adjustment of mA and /or kV according to patient size. COMPARISON: 02/01/2020, 08/06/2019 FINDINGS: Image quality: Diagnostic. Lower chest: Extensive pleural plaques and calcifications are redemonstrated. Liver: No solid mass. Hepatic steatosis. Gallbladder and biliary tree: No radiopaque stones or wall thickening. No biliary dilation. Spleen: No splenomegaly. Pancreas: No pancreatic ductal dilation. Adrenals: No adrenal nodule. Kidneys and ureters: 4 mm obstructing stone within the proximal right ureter resulting in upstream mi ld hydroureteronephrosis. Left peripelvic cysts Stomach, bowel and peritoneum: Small hiatal hernia. No bowel distension. No pathologic free fluid. Di verticulosis without evidence of diverticulitis. Normal appendix. Lymph nodes: No central or retroperitoneal adenopathy. Vessels: No infrarenal aortic aneurysm. Vascular vascular calcifications. PELVIS Reproductive organs: Unremarkable. Bladder: No abnormal wall thickening, accounting for underdistention. Pelvic lymph nodes: No pelvic adenopathy by size criteria. Bones: No aggressive osseous abnormality. Other: Small bilateral fat-containing inguinal hernias. IMPRESSION: 1.Obstructing 4 mm stone within the proximal right ureter resulting in mild upstream hydroureteroneph rosis. 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 3.Hepatic steatosis. 4.Diverticulosis without evidence of acute diverticulitis. Moderate stool burden. Findings are concordant with preliminary interpretation provided by [facility]. Reviewed by: Leon Coleman MD on 01/23/2024 7:56 AM PST Approved by: Leon Coleman MD on 01/23/2024 7:56 AM PST Station ID: [id number]
== END 2024-01-23 03:35 | disposition home or self-care (01) ==
LOC: ED 23:32
DX: N20.0 Calculus of kidney (principal); R31.0 Gross hematuria; I48.91 Unspecified atrial fibrillation; J44.9 Chronic obstructive pulmonary disease, unspecified; E11.9 Type 2 diabetes mellitus without complications; Z87.442 Personal history of urinary calculi; Z79.899 Other long term (current) drug therapy; Z79.01 Long term (current) use of anticoagulants; Z79.84 Long term (current) use of oral hypoglycemic drugs
CPT/HCPCS: 36415; 74177; 80053; 81001; 83690; 85025; 85610; 99283; 99284; Q9967; 81003; 87086

== ENCOUNTER 2024-03-11 08:00 | Outpatient (CLI) | payer MEDICARE, OTHER | END 2024-03-11 08:01 | disposition home or self-care (01) | LOC: LAB 08:00 | PROVIDERS: ATTEND Family Medicine | DX: Z53.9 Procedure and treatment not carried out, unspecified reason (principal) ==

== ENCOUNTER 2024-05-30 08:00 | Outpatient (CLI) | payer MEDICARE, OTHER | END 2024-05-30 23:59 | disposition home or self-care (01) | LOC: LAB 08:00 | PROVIDERS: ATTEND Family Medicine | DX: I48.0 Paroxysmal atrial fibrillation (principal); I63.9 Cerebral infarction, unspecified; Z95.2 Presence of prosthetic heart valve; Z79.01 Long term (current) use of anticoagulants ==

== ENCOUNTER 2024-05-31 10:44 | Outpatient (CLI) | payer MEDICARE, OTHER ==
[2024-05-31 11:07] LABS: BASOPHILS # (AUTO) 0.1 10^3/uL (0.0-0.1); BASOPHILS % (AUTO) 0.9 %; EOSINOPHILS # (AUTO) 0.2 10^3/uL (0.0-0.7); EOSINOPHILS % (AUTO) 3.8 %; HCT - HEMATOCRIT 41.6 % (42.0-52.0); HGB - HEMOGLOBIN 12.8 g/dL (14.0-18.0); LYMPHOCYTES # (AUTO) 1.3 10^3/uL (1.5-3.5); LYMPHOCYTES % (AUTO) 22.9 %; MEAN CORPUSCULAR HEMOGLOBIN 25.7 pg (27.0-31.0); MEAN CORPUSCULAR HGB CONC 30.8 g/dL (32.0-36.0); MEAN CORPUSCULAR VOLUME 83.5 fL (80.0-94.0); MEAN PLATELET VOLUME 9.7 fL (7.4-11.4); MONOCYTES # (AUTO) 0.5 10^3/uL (0.0-1.0); MONOCYTES % (AUTO) 8.5 %; NEUTROPHILS # (AUTO) 3.5 10^3/uL (1.5-6.6); NEUTROPHILS % (AUTO) 63.5 %; PLT - PLATELET COUNT 232 10^3/uL (130-450); RED BLOOD COUNT 4.98 10^6/uL (4.70-6.10); WHITE BLOOD COUNT 5.5 x10^3/uL (4.8-10.8)
[2024-05-31 11:15] LABS: ESTIMATED AVERAGE GLUCOSE 134 mg/dL (70-100); HEMOGLOBIN A1c% 6.3 % (4.27-6.07)
[2024-05-31 11:21] LABS: CREATININE,URINE 128.5 mg/dL; MICROALBUM/CREATININE RATIO,UR 10.1 ug/mg (<30.0); MICROALBUMIN,URINE 1.3 mg/dL
[2024-05-31 11:22] LABS: ALBUMIN 3.8 g/dL (3.2-5.5); ALBUMIN/GLOBULIN RATIO 1.3 (1.0-2.2); ALKALINE PHOSPHATASE 53 IU/L (42-121); ALT ALANINE AMINOTRANSFERASE 11 IU/L (10-60); AST ASPARTATE AMINOTRANSFERASE 17 IU/L (10-42); BILIRUBIN,TOTAL 0.6 mg/dL (0.2-1.0); BUN - BLOOD UREA NITROGEN 15 mg/dL (6-20); CALCIUM 9.1 mg/dL (8.5-10.3); CARBON DIOXIDE - CO2 29 mmol/L (21-32); CHLORIDE 104 mmol/L (101-111); CHOL/HDL RATIO 6.8 (<5.0); CHOLESTEROL 170 mg/dL; GFR - MDRD 71 (>89); GLUCOSE 136 mg/dL (74-104); HDL CHOLESTEROL 25 mg/dL; LDL CHOLESTEROL,CALCULATED 109 mg/dL; LDL/HDL RATIO 4.4 (<3.6); POTASSIUM 4.3 mmol/L (3.5-4.5); SODIUM 137 mmol/L (135-145); TOTAL PROTEIN 6.7 g/dL (6.4-8.9); TRIGLYCERIDES 181 mg/dL; VLDL CHOLESTEROL 36 mg/dL
[2024-05-31 11:33] LABS: THYROID STIMULATING HORMONE 1.66 uIU/mL (0.34-5.60)
== END 2024-05-31 10:45 | disposition home or self-care (01) ==
LOC: LAB 10:44
PROVIDERS: ATTEND Family Medicine
DX: E11.9 Type 2 diabetes mellitus without complications (principal); M54.2 Cervicalgia; R39.15 Urgency of urination; M25.511 Pain in right shoulder; Z12.5 Encounter for screening for malignant neoplasm of prostate
CPT/HCPCS: 36415; 80053; 80061; 82043; 82570; 83036; 84443; 85025; G0103; 83721; 84153